=== PATIENT | male | born 1950 | race Caucasian/White ===

== ENCOUNTER 2016-09-22 13:16 | Emergency (ER) | payer OTHER ==
[2016-09-22 13:31] VITALS: BP 185/115; PULSE 70; TEMP 98.2; BMI 20.3
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
== END 2016-09-22 15:34 | disposition left against medical advice (07) ==
LOC: JER 13:16
DX: R41.82 Altered mental status, unspecified (principal); R40.0 Somnolence
CPT/HCPCS: 99281-25

== ENCOUNTER 2016-12-20 10:43 | Inpatient (IN) | payer OTHER ==
[2016-12-20 12:20] VITALS: BMI 19.4
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
[2016-12-20] MEDS ORDERED: MAGNESIUM CITRATE 300 ML BOTTLE PO PRN (14:19)
[2016-12-20] MEDS ORDERED: guaiFENesin/D-METHORPHAN HB 10 ML UNIT-DOSE CUPS PO PRN (14:19)
[2016-12-20] MEDS ORDERED: diphenhydrAMINE HCL 50 MG CAPSULE PO PRN (14:19)
[2016-12-20] MEDS ORDERED: LOPERAMIDE HCL 2 MG CAPSULE PO PRN (14:19)
[2016-12-20] MEDS ORDERED: P-EPHED 60MG/TRIPROLIDI 2.5MG TABLET PO PRN (14:19)
[2016-12-20] MEDS ORDERED: hydrOXYzine PAMOATE 25 MG CAPSULE (FP) PO PRN (14:19)
[2016-12-20] MEDS ORDERED: MAGNESIUM HYDROX 2400MG/30ML ORAL SUSPENSION 30 ML CUP PO PRN (14:19)
[2016-12-20] MEDS ORDERED: MAG HYDROX/AL HYDROX/SIMETH 30 ML UNIT-DOSE CUP PO PRN (14:19)
[2016-12-20] MEDS ORDERED: MENTHOL/PHENOL 1 EACH UD MM PRN (14:19)
[2016-12-20] MEDS ORDERED: ACETAMINOPHEN 325 MG TABLET (FP) PO PRN (14:19)
[2016-12-20] MEDS ORDERED: LISINOPRIL 10 MG TABLET (FP) PO ONE (14:28)
[2016-12-20] MEDS ORDERED: METHADONE HCL 10 MG TABLET (FOR DETOX USE ONLY) PO ONE ×2 (14:29→23:00)
[2016-12-20 16:59] LABS: URINE APPEARANCE SLCLOUDY; URINE BILIRUBIN NEGATIVE (NEGATIVE); URINE BLOOD NEGATIVE (NEGATIVE); URINE COLOR AMBER; URINE GLUCOSE (UA) NEGATIVE (NEGATIVE); URINE KETONE NEGATIVE (NEGATIVE); URINE LEUK ESTERASE TRACE (NEGATIVE); URINE NITRITE POSITIVE (NEGATIVE); URINE UROBILINOGEN 4.0 E.U/dl mg/dL (0.2-1.0)
[2016-12-20 17:01] LABS: URINE PROTEIN 1+ (NEGATIVE)
[2016-12-20 17:02] LABS: URINE BACTERIA RARE /hpf (NONE SEEN); URINE MUCUS RARE; URINE RBC 4 /hpf (0-3); URINE WBC 7 /hpf (3-5)
[2016-12-20] MEDS: THIAMINE HCL 100 MG TABLET (FP) PO SCH (22:21)
[2016-12-20] MEDS: diazePAM 5 MG TABLET PO PRN (22:21)
[2016-12-21] MEDS: diazePAM 5 MG TABLET PO PRN (04:46)
[2016-12-21] MEDS: IBUPROFEN 400 MG TABLET (FP) PO PRN ×2 (04:46→22:57)
[2016-12-21 09:54] LABS: MCH 29.6 pg (25.7-33.7); MCHC 32.6 g/dl (32.0-35.9); MEAN CELL VOLUME 90.9 fl (80-96); MEAN PLT VOLUME 9.2 fl (7.5-11.1); PLATELET COUNT 196 K/MM3 (134-434); RDW 15.6 % (11.9-15.9); WHITE BLOOD COUNT 4.5 K/mm3 (4.0-10.0)
[2016-12-21] MEDS ORDERED: METHADONE HCL 10 MG TABLET (FOR DETOX USE ONLY) PO ONE (10:00)
[2016-12-21 10:22] LABS: ALBUMIN 2.5 g/dl (3.4-5.0); ALK PHOS 165 U/L (45-117); ANION GAP 5 (8-16); BILIRUBIN,TOTAL 1.2 mg/dL (0.2-1.0); CALCIUM 8.2 mg/dL (8.5-10.1); CO2 31 mmol/L (21-32); GLUCOSE,RANDOM 112 mg/dL (74-106); SGOT/AST 127 U/L (15-37); SGPT/ALT 60 U/L (12-78); TOT PROT 7.3 g/dl (6.4-8.2)
[2016-12-21] MEDS: PRENATAL VITAMINS W/ FOLIC ACID TABLET (FP) PO SCH (10:27)
[2016-12-21] MEDS: LISINOPRIL 10 MG TABLET (FP) PO SCH (10:27)
[2016-12-21] MEDS: LIDOCAINE 5% TOPICAL PATCH TP SCH (10:27)
--- NOTE | 2016-12-21 12:13 | PN ---
[facility] CIWA - CIWA Score Nausea/Vomitin-No Nausea/No Vomiting Muscle Tremors: 5 Anxiety: 4-Mod. Anxious/Guarded Agitation: 1-Slight > Activity Paroxysmal Sweats: 3 Orientation: 0-Oriented Tacttile Disturbances: 2-Mild Itch/Numbness/Burn Auditory Disturbances: 2-Mild Harshness/Frighten Visual Disturbances: 0-None Headache: 0-None Present CIWA-Ar Total Score: 17 S Progress Note (SOAP) Subjective: Interrupted sleep, Sweating, Tremors. Objective: PT. A & O X 3, OBSERVED AMBULATING ON UNIT. NO ACUTE DISTRESS. PT. DENIES CHEST PAIN. 12/21/16 12:11 Vital Signs Temperature 98.7 F 12/21/16 09:04 Pulse Rate 52 L 12/21/16 09:04 Respiratory Rate 20 12/21/16 09:04 Blood Pressure 142/79 12/21/16 09:04 O2 Sat by Pulse Oximetry (%) Laboratory Tests 12/20/16 12/21/16 12/21/16 15:00 06:00 06:00 WBC 4.5 RBC 3.35 L Hgb 9.9 L D Hct 30.5 L MCV 90.9 MCH 29.6 MCHC 32.6 RDW 15.6 D Plt Count 196 D MPV 9.2 Sodium 141 Potassium 3.9 Chloride 105 Carbon Dioxide 31 Anion Gap 5 L BUN 20 H Creatinine 1.0 Creat Clearance w eGFR > 60 Random Glucose 112 H Calcium 8.2 L Total Bilirubin 1.2 H D AST 127 H D ALT 60 D Alkaline Phosphatase 165 H Total Protein 7.3 Albumin 2.5 L Urine Color Dasha Urine Appearance Slcloudy Urine pH 6.0 Ur Specific [place] 1.020 Urine Protein 1+ H Urine Glucose (UA) Negative Urine Ketones Negative Urine Blood Negative Urine Nitrite Positive Urine Bilirubin Negative Urine Urobilinogen 4.0 e.u/dl Urine RBC 4 Urine WBC 7 Urine Bacteria Rare Urine Mucus Rare RPR Titer 12/21/16 06:00 WBC RBC Hgb Hct MCV MCH MCHC RDW Plt Count MPV Sodium Potassium Chloride Carbon Dioxide Anion Gap BUN Creatinine Creat Clearance w eGFR Random Glucose Calcium Total Bilirubin AST ALT Alkaline Phosphatase Total Protein Albumin Urine Color Urine Appearance Urine pH Ur Specific [place] Urine Protein Urine Glucose (UA) Urine Ketones Urine Blood Urine Nitrite Urine Bilirubin Urine Urobilinogen Urine RBC Urine WBC Urine Bacteria Urine Mucus RPR Titer Nonreactive LABS NOTED. Assessment: 12/21/16 12:11 WITHDRAWAL SYMPTOMS. Plan: CONTINUE DETOX. REPEAT UA FOR ADMISSION ABNORMALITIES. FEOSOL, 325 MG TIDCM. AMLODIPINE, 5 MG PO DAILY (FIRST DOSE NOW) FOR ELEVATED BP. HEPATIC FUNCTION PANEL, REPEAT CBC ON 12/23/2016 FOR ABNORMAL ADMISSION VALUES. INCREASE DAILY PO FLUID INTAKE.
[2016-12-21] MEDS: amLODIPine BESYLATE 5 MG TABLET (FP) PO SCH (13:16)
[2016-12-21] MEDS: FERROUS SO4 325 MG TABLET (FP) PO SCH (17:14)
--- NOTE | 2016-12-21 22:15 | EKG ---
Test Reason : Blood Pressure : / mmHG Vent. Rate : 065 BPM Atrial Rate : 065 BPM P-R Int : 150 ms QRS Dur : 096 ms QT Int : 402 ms P-R-T Axes : 046 000 056 degrees QTc Int : 418 ms NORMAL SINUS RHYTHM NONSPECIFIC T WAVE ABNORMALITY ABNORMAL ECG WHEN COMPARED WITH ECG OF 20-DEC-2016 15:20, NONSPECIFIC T WAVE ABNORMALITY NOW EVIDENT IN ANTERIOR LEADS REPEAT EKG IF CLINICALLY INDICATED Confirmed by MARKY COATES MD ([id number]) on 12/21/2016 10:15:22 PM Referred By: Confirmed By:MARKY COATES MD
--- NOTE | 2016-12-21 22:39 | EKG ---
Test Reason : Blood Pressure : / mmHG Vent. Rate : 059 BPM Atrial Rate : 059 BPM P-R Int : 134 ms QRS Dur : 096 ms QT Int : 402 ms P-R-T Axes : 028 017 067 degrees QTc Int : 397 ms SINUS BRADYCARDIA MINIMAL VOLTAGE CRITERIA FOR LVH, MAY BE NORMAL VARIANT RSR' IN V1 NO PREVIOUS ECGS AVAILABLE CLINICAL CORRELATION IS RECOMMENDED Confirmed by MARKY COATES MD ([id number]) on 12/21/2016 10:38:53 PM Referred By: Confirmed By:MARKY COATES MD
[2016-12-21] MEDS: THIAMINE HCL 100 MG TABLET (FP) PO SCH (22:56)
[2016-12-21] MEDS: LIDOCAINE PATCH REMOVAL MC SCH (23:50)
[2016-12-22] MEDS: FERROUS SO4 325 MG TABLET (FP) PO SCH ×3 (07:37→16:57)
[2016-12-22] MEDS: IBUPROFEN 400 MG TABLET (FP) PO PRN (07:41)
[2016-12-22] MEDS: diazePAM 5 MG TABLET PO PRN (08:48)
[2016-12-22] MEDS ORDERED: METHADONE HCL 5 MG TABLET (FOR DETOX USE ONLY) PO ONE (10:00)
[2016-12-22] MEDS: PRENATAL VITAMINS W/ FOLIC ACID TABLET (FP) PO SCH (10:15)
[2016-12-22] MEDS: LISINOPRIL 10 MG TABLET (FP) PO SCH (10:15)
[2016-12-22] MEDS: amLODIPine BESYLATE 5 MG TABLET (FP) PO SCH (10:15)
[2016-12-22] MEDS: LIDOCAINE 5% TOPICAL PATCH TP SCH (10:17)
--- NOTE | 2016-12-22 15:36 | PN ---
BHS COWS - Scale Resting Pulse: 0= PA 80 or Below Sweatin= Chills/Flushing Restless Observation: 1= Difficult to Sit Still Pupil Size: 0= Normal to Room Light Bone or Joint Aches: 2= Severe Diffuse Aches Runny Nose/ Eye Tearin= Nasal Congestion GI Upset > 30mins: 0= None Tremor Observation of Outstretched Hands: 2= Slight Tremor Visible Yawning Observation: 2= >3x During Session Anxiety or Irritability: 2=Irritable/Anxious Goose Flesh Skin: 3=Piloerection COWS Score: 14 BHS Progress Note (SOAP) Subjective: Interrupted sleep, Anxious, Fatigue, Body Aches, Tremors. Objective: PT. A & O X 3, OBSERVED MOVING ABOUT UNIT UNIT IN IN A WHEELCHAIR. NO ACUTE DISTRESS. PT. DENIES CHEST PAIN. 12/22/16 15:33 Vital Signs Temperature 96.8 F L 12/22/16 09:23 Pulse Rate 78 12/22/16 09:23 Respiratory Rate 16 12/22/16 09:23 Blood Pressure 132/79 12/22/16 09:23 O2 Sat by Pulse Oximetry (%) Laboratory Tests 12/20/16 12/21/16 12/21/16 15:00 06:00 06:00 WBC 4.5 RBC 3.35 L Hgb 9.9 L D Hct 30.5 L MCV 90.9 MCH 29.6 MCHC 32.6 RDW 15.6 D Plt Count 196 D MPV 9.2 Sodium 141 Potassium 3.9 Chloride 105 Carbon Dioxide 31 Anion Gap 5 L BUN 20 H Creatinine 1.0 Creat Clearance w eGFR > 60 Random Glucose 112 H Calcium 8.2 L Total Bilirubin 1.2 H D AST 127 H D ALT 60 D Alkaline Phosphatase 165 H Total Protein 7.3 Albumin 2.5 L Urine Color Dasha Urine Appearance Slcloudy Urine pH 6.0 Ur Specific [place] 1.020 Urine Protein 1+ H Urine Glucose (UA) Negative Urine Ketones Negative Urine Blood Negative Urine Nitrite Positive Urine Bilirubin Negative Urine Urobilinogen 4.0 e.u/dl Urine RBC 4 Urine WBC 7 Urine Bacteria Rare Urine Mucus Rare RPR Titer 12/21/16 06:00 WBC RBC Hgb Hct MCVLABS MCH MCHC RDW Plt Count MPV Sodium Potassium Chloride Carbon Dioxide Anion Gap BUN Creatinine Creat Clearance w eGFR Random Glucose Calcium Total Bilirubin AST ALT Alkaline Phosphatase Total Protein Albumin Urine Color Urine Appearance Urine pH Ur Specific [place] Urine Protein Urine Glucose (UA) Urine Ketones Urine Blood Urine Nitrite Urine Bilirubin Urine Urobilinogen Urine RBC Urine WBC Urine Bacteria Urine Mucus RPR Titer Nonreactive LABS NOTED. RESULTS OF REPEAT UA PENDING. 12/22/16 15:36 Assessment: 12/22/16 15:35 WITHDRAWAL SYMPTOMS. Plan: CONTINUE DETOX.
[2016-12-22 17:18] LABS: URINE APPEARANCE CLOUDY; URINE BLOOD 1+ (NEGATIVE); URINE COLOR AMBER; URINE GLUCOSE (UA) NEGATIVE (NEGATIVE); URINE KETONE NEGATIVE (NEGATIVE); URINE NITRITE NEGATIVE (NEGATIVE); URINE UROBILINOGEN 4.0 E.U/dl mg/dL (0.2-1.0)
[2016-12-22 17:21] LABS: URINE LEUK ESTERASE 1+ (NEGATIVE); URINE PROTEIN 1+ (NEGATIVE)
[2016-12-22 17:47] LABS: URINE MUCUS MANY; URINE RBC 4 /hpf (0-3); URINE WBC 29 /hpf (3-5)
[2016-12-22] MEDS: THIAMINE HCL 100 MG TABLET (FP) PO SCH (22:50)
[2016-12-22] MEDS: LIDOCAINE PATCH REMOVAL MC SCH (23:07)
[2016-12-23] MEDS: FERROUS SO4 325 MG TABLET (FP) PO SCH ×3 (07:24→17:25)
[2016-12-23] MEDS ORDERED: METHADONE HCL 5 MG TABLET (FOR DETOX USE ONLY) PO ONE (10:00)
[2016-12-23 10:23] LABS: BASOPHIL 1.1 % (0-2.0); EOSINOPHIL 1.4 % (0-4.5); MCHC 32.8 g/dl (32.0-35.9); MEAN CELL VOLUME 91.4 fl (80-96); MEAN PLT VOLUME 8.9 fl (7.5-11.1); NEUTROPHILS 76.3 % (42.8-82.8); PLATELET COUNT 166 K/MM3 (134-434); RDW 15.1 % (11.9-15.9); WHITE BLOOD COUNT 4.4 K/mm3 (4.0-10.0)
[2016-12-23] MEDS: amLODIPine BESYLATE 5 MG TABLET (FP) PO SCH (10:25)
[2016-12-23] MEDS: LISINOPRIL 10 MG TABLET (FP) PO SCH (10:25)
[2016-12-23] MEDS: PRENATAL VITAMINS W/ FOLIC ACID TABLET (FP) PO SCH (10:25)
[2016-12-23] MEDS: diazePAM 5 MG TABLET PO PRN (10:26)
[2016-12-23] MEDS: LIDOCAINE 5% TOPICAL PATCH TP SCH (10:27)
[2016-12-23 10:31] LABS: ALBUMIN 2.3 g/dl (3.4-5.0); BILIRUBIN,DIRECT 0.5 mg/dL (0.0-0.2); BILIRUBIN,TOTAL 0.7 mg/dL (0.2-1.0); TOT PROT 7.2 g/dl (6.4-8.2)
--- NOTE | 2016-12-23 15:40 | PN ---
BHS Progress Note (SOAP) Subjective: Sweating,interrupted sleep,restless Objective: 12/23/16 15:39 Vital Signs - 8 hr 12/23/16 12/23/16 09:42 13:05 Temperature 97.1 F L 97.4 F L Pulse Rate 82 79 Respiratory 18 16 Rate Blood Pressure 133/76 148/92 Laboratory Tests 12/20/16 12/21/16 12/21/16 15:00 06:00 06:00 WBC 4.5 RBC 3.35 L Hgb 9.9 L D Hct 30.5 L MCV 90.9 MCH 29.6 MCHC 32.6 RDW 15.6 D Plt Count 196 D MPV 9.2 Neutrophils % Lymphocytes % Monocytes % Eosinophils % Basophils % Sodium 141 Potassium 3.9 Chloride 105 Carbon Dioxide 31 Anion Gap 5 L BUN 20 H Creatinine 1.0 Creat Clearance w eGFR > 60 Random Glucose 112 H Calcium 8.2 L Total Bilirubin 1.2 H D Direct Bilirubin AST 127 H D ALT 60 D Alkaline Phosphatase 165 H Total Protein 7.3 Albumin 2.5 L Urine Color Dasha Urine Appearance Slcloudy Urine pH 6.0 Ur Specific [place] 1.020 Urine Protein 1+ H Urine Glucose (UA) Negative Urine Ketones Negative Urine Blood Negative Urine Nitrite Positive Urine Bilirubin Negative Urine Urobilinogen 4.0 e.u/dl Urine RBC 4 Urine WBC 7 Urine Bacteria Rare Urine Mucus Rare RPR Titer 12/21/16 12/22/16 12/23/16 06:00 13:30 07:30 WBC 4.4 RBC 3.32 L Hgb 10.0 L Hct 30.4 L MCV 91.4 MCH 30.0 MCHC 32.8 RDW 15.1 Plt Count 166 MPV 8.9 Neutrophils % 76.3 Lymphocytes % 14.4 Monocytes % 6.8 Eosinophils % 1.4 Basophils % 1.1 Sodium Potassium Chloride Carbon Dioxide Anion Gap BUN Creatinine Creat Clearance w eGFR Random Glucose Calcium Total Bilirubin Direct Bilirubin AST ALT Alkaline Phosphatase Total Protein Albumin Urine Color Dasha Urine Appearance Cloudy Urine pH 6.0 Ur Specific [place] 1.020 Urine Protein 1+ H Urine Glucose (UA) Negative Urine Ketones Negative Urine Blood 1+ H Urine Nitrite Negative Urine Bilirubin 2.0 Urine Urobilinogen 4.0 e.u/dl Urine RBC 4 Urine WBC 29 Urine Bacteria Urine Mucus Many RPR Titer Nonreactive 12/23/16 07:30 WBC RBC Hgb Hct MCV MCH MCHC RDW Plt Count MPV Neutrophils % Lymphocytes % Monocytes % Eosinophils % Basophils % Sodium Potassium Chloride Carbon Dioxide Anion Gap BUN Creatinine Creat Clearance w eGFR Random Glucose Calcium Total Bilirubin 0.7 D Direct Bilirubin 0.5 H AST 157 H D ALT 56 Alkaline Phosphatase 202 H D Total Protein 7.2 Albumin 2.3 L Urine Color Urine Appearance Urine pH Ur Specific [place] Urine Protein Urine Glucose (UA) Urine Ketones Urine Blood Urine Nitrite Urine Bilirubin Urine Urobilinogen Urine RBC Urine WBC Urine Bacteria Urine Mucus RPR Titer u/a noted u/c&s ordered Assessment: 12/23/16 15:40 Withdrawal sx. Plan: Continue detox
[2016-12-23] MEDS: LEVOFLOXACIN 500 MG TABLET (FP) PO SCH (17:24)
[2016-12-23] MEDS: LIDOCAINE PATCH REMOVAL MC SCH (21:33)
[2016-12-23] MEDS: THIAMINE HCL 100 MG TABLET (FP) PO SCH (21:36)
[2016-12-24] MEDS: LEVOFLOXACIN 500 MG TABLET (FP) PO SCH (07:09)
[2016-12-24] MEDS: FERROUS SO4 325 MG TABLET (FP) PO SCH ×3 (07:09→17:23)
[2016-12-24] MEDS ORDERED: METHADONE HCL 10 MG TABLET (FOR DETOX USE ONLY) PO ONE (10:00)
[2016-12-24] MEDS: LIDOCAINE 5% TOPICAL PATCH TP SCH (10:16)
[2016-12-24] MEDS: amLODIPine BESYLATE 5 MG TABLET (FP) PO SCH (10:16)
[2016-12-24] MEDS: PRENATAL VITAMINS W/ FOLIC ACID TABLET (FP) PO SCH (10:16)
[2016-12-24] MEDS: LISINOPRIL 10 MG TABLET (FP) PO SCH (10:16)
--- NOTE | 2016-12-24 11:26 | PN ---
S Progress Note (SOAP) Subjective: ALERT O X 3. SEEN ON ROUNDS SITTING UP IN BED. NAD. Objective: 12/24/16 11:24 Vital Signs Temperature 97.6 F 12/24/16 10:25 Pulse Rate 72 12/24/16 10:25 Respiratory Rate 20 12/24/16 10:25 Blood Pressure 136/72 12/24/16 10:25 O2 Sat by Pulse Oximetry (%) Laboratory Last Values WBC 4.4 K/mm3 (4.0-10.0) 12/23/16 07:30 RBC 3.32 M/mm3 (4.00-5.60) L 12/23/16 07:30 Hgb 10.0 GM/dL (11.7-16.9) L 12/23/16 07:30 Hct 30.4 % (35.4-49) L 12/23/16 07:30 MCV 91.4 fl (80-96) 12/23/16 07:30 MCH 30.0 pg (25.7-33.7) 12/23/16 07:30 MCHC 32.8 g/dl (32.0-35.9) 12/23/16 07:30 RDW 15.1 % (11.9-15.9) 12/23/16 07:30 Plt Count 166 K/MM3 (134-434) 12/23/16 07:30 MPV 8.9 fl (7.5-11.1) 12/23/16 07:30 Neutrophils % 76.3 % (42.8-82.8) 12/23/16 07:30 Lymphocytes % 14.4 % (8-40) 12/23/16 07:30 Monocytes % 6.8 % (3.8-10.2) 12/23/16 07:30 Eosinophils % 1.4 % (0-4.5) 12/23/16 07:30 Basophils % 1.1 % (0-2.0) 12/23/16 07:30 Sodium 141 mmol/L (136-145) 12/21/16 06:00 Potassium 3.9 mmol/L (3.5-5.1) 12/21/16 06:00 Chloride 105 mmol/L (98-107) 12/21/16 06:00 Carbon Dioxide 31 mmol/L (21-32) 12/21/16 06:00 Anion Gap 5 (8-16) L 12/21/16 06:00 BUN 20 mg/dL (7-18) H 12/21/16 06:00 Creatinine 1.0 mg/dL (0.7-1.3) 12/21/16 06:00 Creat Clearance w eGFR > 60 (>60) 12/21/16 06:00 Random Glucose 112 mg/dL (74-106) H 12/21/16 06:00 Calcium 8.2 mg/dL (8.5-10.1) L 12/21/16 06:00 Total Bilirubin 0.7 mg/dL (0.2-1.0) D 12/23/16 07:30 Direct Bilirubin 0.5 mg/dL (0.0-0.2) H 12/23/16 07:30 AST 157 U/L (15-37) H D 12/23/16 07:30 ALT 56 U/L (12-78) 12/23/16 07:30 Alkaline Phosphatase 202 U/L (45-117) H D 12/23/16 07:30 Total Protein 7.2 g/dl (6.4-8.2) 12/23/16 07:30 Albumin 2.3 g/dl (3.4-5.0) L 12/23/16 07:30 Urine Color Dasha 12/22/16 13:30 Urine Appearance Cloudy 12/22/16 13:30 Urine pH 6.0 (5.0-8.0) 12/22/16 13:30 Ur Specific [place] 1.020 (1.005-1.025) 12/22/16 13:30 Urine Protein 1+ (NEGATIVE) H 12/22/16 13:30 Urine Glucose (UA) Negative (NEGATIVE) 12/22/16 13:30 Urine Ketones Negative (NEGATIVE) 12/22/16 13:30 Urine Blood 1+ (NEGATIVE) H 12/22/16 13:30 Urine Nitrite Negative (NEGATIVE) 12/22/16 13:30 Urine Bilirubin 2.0 (NEGATIVE) 12/22/16 13:30 Urine Urobilinogen 4.0 e.u/dl mg/dL (0.2-1.0) 12/22/16 13:30 Urine RBC 4 /hpf (0-3) 12/22/16 13:30 Urine WBC 29 /hpf (3-5) 12/22/16 13:30 Urine Bacteria Rare /hpf (NONE SEEN) 12/20/16 15:00 Urine Mucus Many 12/22/16 13:30 RPR Titer Nonreactive (NONREACTIVE) 12/21/16 06:00 UC RESULT PENDING Assessment: 12/24/16 11:25 WITHDRAWAL SX Plan: CONTINUE DETOX
[2016-12-24] MEDS: LIDOCAINE PATCH REMOVAL MC SCH (22:19)
[2016-12-24] MEDS: THIAMINE HCL 100 MG TABLET (FP) PO SCH (22:19)
[2016-12-25] MEDS: LEVOFLOXACIN 500 MG TABLET (FP) PO SCH (05:54)
[2016-12-25] MEDS ORDERED: METHADONE HCL 5 MG TABLET (FOR DETOX USE ONLY) PO ONE (06:00)
[2016-12-25 06:39] VITALS: BP 144/83; PULSE 84; TEMP 97.4
[2016-12-25] MEDS: FERROUS SO4 325 MG TABLET (FP) PO SCH (07:01)
--- NOTE | 2016-12-25 14:24 | DS ---
[facility] Detox Discharge Summary Admission Date: 12/20/16 Discharge Date: 12/25/16 - History Present History: Opioid Dependence, MMTP Additional Comments: PATIENT REPORTING INTEREST IN [facility] ( [place] PATIENT ADVISED TO CONSIDER LOCAL 12-STEP / NA OUTPATIENT SUPPORT GROUP MEETINGS SHOULD HE DECIDE NOT TO GO TO [facility]. PATIENT WAS DISCHARGED FROM DETOX UNIT IN STABLE MEDICAL CONDITION. Pertinent Past History: Hep C, Depression, Nicotine Dependence, MMTP, Use of Cane as Ambulatory Aid, History of Left-Sided Pneumothorax. - Physical Exam Results Vital Signs: Vital Signs Temperature 97.4 F L 12/25/16 06:39 Pulse Rate 84 12/25/16 06:39 Respiratory Rate 16 12/25/16 06:39 Blood Pressure 144/83 12/25/16 06:39 O2 Sat by Pulse Oximetry (%) Pertinent Admission Physical Exam Findings: WITHDRAWAL SYMPTOMS. Laboratory Tests 12/20/16 12/21/16 12/21/16 15:00 06:00 06:00 WBC 4.5 RBC 3.35 L Hgb 9.9 L D Hct 30.5 L MCV 90.9 MCH 29.6 MCHC 32.6 RDW 15.6 D Plt Count 196 D MPV 9.2 Neutrophils % Lymphocytes % Monocytes % Eosinophils % Basophils % Sodium 141 Potassium 3.9 Chloride 105 Carbon Dioxide 31 Anion Gap 5 L BUN 20 H Creatinine 1.0 Creat Clearance w eGFR > 60 Random Glucose 112 H Calcium 8.2 L Total Bilirubin 1.2 H D Direct Bilirubin AST 127 H D ALT 60 D Alkaline Phosphatase 165 H Total Protein 7.3 Albumin 2.5 L Urine Color Dasha Urine Appearance Slcloudy Urine pH 6.0 Ur Specific [place] 1.020 Urine Protein 1+ H Urine Glucose (UA) Negative Urine Ketones Negative Urine Blood Negative Urine Nitrite Positive Urine Bilirubin Negative Urine Urobilinogen 4.0 e.u/dl Urine RBC 4 Urine WBC 7 Urine Bacteria Rare Urine Mucus Rare RPR Titer 12/21/16 12/22/16 12/23/16 06:00 13:30 07:30 WBC 4.4 RBC 3.32 L Hgb 10.0 L Hct 30.4 L MCV 91.4 MCH 30.0 MCHC 32.8 RDW 15.1 Plt Count 166 MPV 8.9 Neutrophils % 76.3 Lymphocytes % 14.4 Monocytes % 6.8 Eosinophils % 1.4 Basophils % 1.1 Sodium Potassium Chloride Carbon Dioxide Anion Gap BUN Creatinine Creat Clearance w eGFR Random Glucose Calcium Total Bilirubin Direct Bilirubin AST ALT Alkaline Phosphatase Total Protein Albumin Urine Color Dasha Urine Appearance Cloudy Urine pH 6.0 Ur Specific [place] 1.020 Urine Protein 1+ H Urine Glucose (UA) Negative Urine Ketones Negative Urine Blood 1+ H Urine Nitrite Negative Urine Bilirubin 2.0 Urine Urobilinogen 4.0 e.u/dl Urine RBC 4 Urine WBC 29 Urine Bacteria Urine Mucus Many RPR Titer Nonreactive 12/23/16 07:30 WBC RBC Hgb Hct MCV MCH MCHC RDW Plt Count MPV Neutrophils % Lymphocytes % Monocytes % Eosinophils % Basophils % Sodium Potassium Chloride Carbon Dioxide Anion Gap BUN Creatinine Creat Clearance w eGFR Random Glucose Calcium Total Bilirubin 0.7 D Direct Bilirubin 0.5 H AST 157 H D ALT 56 Alkaline Phosphatase 202 H D Total Protein 7.2 Albumin 2.3 L Urine Color Urine Appearance Urine pH Ur Specific [place] Urine Protein Urine Glucose (UA) Urine Ketones Urine Blood Urine Nitrite Urine Bilirubin Urine Urobilinogen Urine RBC Urine WBC Urine Bacteria Urine Mucus RPR Titer LABS NOTED. - Treatment Hospital Course: Detox Protocol Followed, Detoxed Safely, Responded well, Discharged Condition Good, Rehab Referral Accepted Patient has Accepted a Rehab Referral to: [facility] ([place], [place] - Medication Discharge Medications: Ambulatory Orders NK [No Known Home Medication] 10/23/14 - Diagnosis (1) Essential hypertension Status: Acute (2) Methadone maintenance therapy patient Status: Chronic (3) Nicotine dependence Status: Chronic Qualifiers: Nicotine product type: cigarettes Substance use status: in withdrawal Qualified Code(s): F17.213 - Nicotine dependence, cigarettes, with withdrawal (4) Opioid dependence Status: Acute (5) Pneumothorax on left Status: Acute (6) Frequent falls Status: Chronic (7) Use of cane as ambulatory aid Status: Chronic (8) Weight loss Status: Chronic (9) Hepatitis C Status: Chronic Qualifiers: Viral hepatitis chronicity: chronic Hepatic coma status: without hepatic coma Qualified Code(s): B18.2 - Chronic viral hepatitis C - AMA Did Patient Leave Against Medical Advice: No
== END 2016-12-25 08:34 | disposition home or self-care (01) | DRG 773 ==
LOC: YASAS 10:43 → UNDOADMIN 14:19 → Y3N 14:19 → UNDODISIN 12-25 08:49
PROVIDERS: ADMIT Internal Medicine; ATTEND Internal Medicine
PROC: HZ2ZZZZ Detoxification Services for Substance Abuse Treatment (ICD-10-PCS; principal; 2016-12-20)
DX: F11.23 Opioid dependence with withdrawal (principal); F17.210 Nicotine dependence, cigarettes, uncomplicated; I10 Essential (primary) hypertension; B18.2 Chronic viral hepatitis C; R29.6 Repeated falls; R26.2 Difficulty in walking, not elsewhere classified; Z99.89 Dependence on other enabling machines and devices; Z87.898 Personal history of other specified conditions; Z91.14 Patient's other noncompliance with medication regimen; Z87.09 Personal history of other diseases of the respiratory system
CPT/HCPCS: 36415; 71010-TC; 80053; 80076; 81003; 81015; 85025; 85027; 86593; 87086; 93005; 93010

== ENCOUNTER 2017-01-25 11:30 | Inpatient (IN) | payer OTHER ==
[2017-01-25 13:25] VITALS: BMI 18.0
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
[2017-01-25] MEDS ORDERED: MENTHOL/PHENOL 1 EACH UD MM PRN (14:44)
[2017-01-25] MEDS ORDERED: guaiFENesin/D-METHORPHAN HB 10 ML UNIT-DOSE CUPS PO PRN (14:44)
[2017-01-25] MEDS ORDERED: hydrOXYzine PAMOATE 50 MG CAPSULE (FP) PO PRN (14:44)
[2017-01-25] MEDS ORDERED: ACETAMINOPHEN 325 MG TABLET (FP) PO PRN (14:44)
[2017-01-25] MEDS ORDERED: diphenhydrAMINE HCL 50 MG CAPSULE PO PRN (14:44)
[2017-01-25] MEDS ORDERED: MAG HYDROX/AL HYDROX/SIMETH 30 ML UNIT-DOSE CUP PO PRN (14:44)
[2017-01-25] MEDS ORDERED: P-EPHED 60MG/TRIPROLIDI 2.5MG TABLET PO PRN (14:44)
[2017-01-25] MEDS ORDERED: MAGNESIUM HYDROX 2400MG/30ML ORAL SUSPENSION 30 ML CUP PO PRN (14:44)
[2017-01-25] MEDS ORDERED: LOPERAMIDE HCL 2 MG CAPSULE PO PRN (14:44)
[2017-01-25] MEDS ORDERED: chlordiazePOXIDE HCL 25 MG CAPSULE PO PRN (14:44)
[2017-01-25] MEDS ORDERED: MAGNESIUM CITRATE 300 ML BOTTLE PO PRN (14:44)
[2017-01-25] MEDS ORDERED: NICOTINE POLACRILEX 2 MG GUM BUC PRN (14:44)
[2017-01-25] MEDS ORDERED: chlordiazePOXIDE HCL 25 MG CAPSULE PO ONE (14:51)
[2017-01-25] MEDS: NICOTINE 21 MG/24 HOURS TOPICAL PATCH TD SCH (15:56)
[2017-01-25] MEDS ORDERED: METHADONE HCL 10 MG TABLET (FOR DETOX USE ONLY) PO ONE ×2 (17:00→23:00)
[2017-01-25] MEDS ORDERED: chlordiazePOXIDE HCL 25 MG CAPSULE PO SCH (17:00)
[2017-01-25 17:57] LABS: URINE APPEARANCE SLCLOUDY; URINE BILIRUBIN NEGATIVE (NEGATIVE); URINE BLOOD NEGATIVE (NEGATIVE); URINE COLOR AMBER; URINE GLUCOSE (UA) NEGATIVE (NEGATIVE); URINE KETONE NEGATIVE (NEGATIVE); URINE NITRITE NEGATIVE (NEGATIVE); URINE PROTEIN NEGATIVE (NEGATIVE); URINE UROBILINOGEN 4.0 E.U/dl mg/dL (0.2-1.0)
[2017-01-25] MEDS: amLODIPine BESYLATE 5 MG TABLET (FP) PO SCH (18:46)
[2017-01-25 20:02] LABS: ALBUMIN 2.4 g/dl (3.4-5.0); ALK PHOS 126 U/L (45-117); ANION GAP 6 (8-16); BILIRUBIN,TOTAL 0.8 mg/dL (0.2-1.0); CALCIUM 7.5 mg/dL (8.5-10.1); CO2 30 mmol/L (21-32); CREATININE 1.1 mg/dL (0.7-1.3); GLUCOSE,RANDOM 103 mg/dL (74-106); SGOT/AST 123 U/L (15-37); SGPT/ALT 97 U/L (12-78); TOT PROT 7.1 g/dl (6.4-8.2)
[2017-01-25 20:28] LABS: URINE LEUK ESTERASE Negative (NEGATIVE)
[2017-01-25] MEDS: THIAMINE HCL 100 MG TABLET (FP) PO SCH (22:25)
[2017-01-25] MEDS: diazePAM 5 MG TABLET PO PRN (22:25)
[2017-01-26] MEDS: diazePAM 5 MG TABLET PO PRN ×2 (06:24→19:11)
--- NOTE | 2017-01-26 07:33 | CONSULT ---
[facility] Psychiatric Consult - Data Date of interview: 01/26/17 Admission source: [facility] Identifying data: This ios 66 years old chtonic Alcohol addict, ambulating with Cane, with no psychiatric hospiotalization history, withy multiple medical issues, intoxicated with: Alcoho;l, Cocaine, Opioids and Nicotine Substance Abuse History: Smoking history: Current every day smoker. Have you smoked in the past 12 months: Yes. Aproximately how many cigarettes per day: 10. Cigars Per Day: 0. Hx Chewing Tobacco Use: No. Initiated information on smoking cessation: Yes. 'Breaking Loose' booklet given: 01/25/17 (GIVEN TO PATIENT.). - Substance & Tx. History. Hx Alcohol Use: Yes. Hx Substance Use: Yes. Substance Use Type: Alcohol, Heroin. Hx Substance Use Treatment: Yes ( Several previous Detox admissinos at [facility]; Most recent: 12/2016.). - Substances Abused. Heroin. Route: Inhalation. Frequency: Daily. Amount used: 8 bags. Age of first use: 13. Date of Last Use: 01/24/17. Alcohol. Route: Oral. Frequency: 3-6 times per week. Amount used: 3-4 beers. Age of first use: 14. Date of Last Use: 01/24/17. Family Disease History Medical History: MMTP History, HepC+, rIGHT BhIP Ninjuty history, Weught loss history Psychiatric History: Patient reports history of anxiety and depression Physical/Sexual Abuse/Trauma History: Denies Additional Comment: Observation. Detox Unit Care Protocol Mental Status Exam - Mental Status Exam Alert and Oriented to: Person Cognitive Function: Fair Patient Appearance: Unkempt Mood: Anxious Affect: Labile Patient Behavior: Impulsive, Talkative, Agitated Speech Pattern: Slurred Voice Loudness: Mildly Soft/Quiet Thought Process: Circumstantial Thought Disorder: Being Controlled Hallucinations: Denies Suicidal Ideation: Denies Homicidal Ideation: Denies Insight/Judgement: Fair Sleep: Difficulty falling asleep Appetite: Weight loss Muscle strength/Tone: Mild Hypotonicity Gait/Station: Deferred Additional Comments: Observation. Detox Unit Care Protocol Psychiatric Findings - Problem List ([place] 1, 2,3) (1) Opioid dependence with withdrawal Current Visit: Yes Status: Acute (2) Alcohol dependence, uncomplicated Current Visit: Yes Status: Chronic (3) Nicotine dependence Current Visit: Yes Status: Chronic Qualifiers: Nicotine product type: cigarettes Substance use status: uncomplicated Qualified Code(s): F17.210 - Nicotine dependence, cigarettes, uncomplicated; F17.210 - Nicotine dependence, cigarettes, uncomplicated (4) Alcohol dependence Current Visit: No Status: Acute Qualifiers: Substance use status: in withdrawal (5) Drug-induced mood disorder Current Visit: No Status: Acute (6) Anxiety Current Visit: No Status: Chronic (7) Depression Current Visit: No Status: Chronic (8) Methadone maintenance therapy patient Current Visit: No Status: Chronic (9) Weight loss Current Visit: No Status: Chronic - Initial Treatment Plan Initial Treatment Plan: Observation. Detox Unit Care Protocol
[2017-01-26 09:02] LABS: HIV 1 & 2 AB NEGATIVE; HIV 1 AGp24 NEGATIVE
[2017-01-26 09:56] LABS: MCH 30.2 pg (25.7-33.7); MCHC 33.7 g/dl (32.0-35.9); MEAN CELL VOLUME 89.7 fl (80-96); MEAN PLT VOLUME 9.5 fl (7.5-11.1); PLATELET COUNT 146 K/MM3 (134-434); RDW 15.5 % (11.9-15.9); WHITE BLOOD COUNT 3.8 K/mm3 (4.0-10.0)
[2017-01-26] MEDS ORDERED: METHADONE HCL 10 MG TABLET (FOR DETOX USE ONLY) PO ONE (10:00)
[2017-01-26] MEDS: IBUPROFEN 400 MG TABLET (FP) PO PRN (10:43)
[2017-01-26] MEDS: amLODIPine BESYLATE 5 MG TABLET (FP) PO SCH (10:43)
[2017-01-26] MEDS: PRENATAL VITAMINS W/ FOLIC ACID TABLET (FP) PO SCH (10:43)
[2017-01-26] MEDS: NICOTINE 21 MG/24 HOURS TOPICAL PATCH TD SCH (10:47)
[2017-01-26] MEDS ORDERED: FLU VACCINE QUAD 60 MCG/0.5 ML (MDV 17-18) IM ONE (12:00)
--- NOTE | 2017-01-26 12:11 | PN ---
[facility] COWS - Scale Resting Pulse: 0= ID 80 or Below Sweatin=Flushed/Facial Moisture Restless Observation: 1= Difficult to Sit Still Pupil Size: 0= Normal to Room Light Bone or Joint Aches: 2= Severe Diffuse Aches Runny Nose/ Eye Tearin= Nasal Congestion GI Upset > 30mins: 2= Nausea/Diarrhea Tremor Observation of Outstretched Hands: 2= Slight Tremor Visible Yawning Observation: 1= 1-2x During Session Anxiety or Irritability: 2=Irritable/Anxious Goose Flesh Skin: 0=Smooth Skin COWS Score: 13 BHS Progress Note (SOAP) Subjective: agitation anxiety sweats i need a cane interrupted sleep Objective: 01/26/17 12:10 Vital Signs Temperature 98.6 F 01/26/17 10:00 Pulse Rate 85 01/26/17 10:00 Respiratory Rate 18 01/26/17 10:00 Blood Pressure 133/75 01/26/17 10:00 O2 Sat by Pulse Oximetry (%) Laboratory Tests 01/25/17 01/25/17 01/25/17 14:05 14:05 15:45 WBC RBC Hgb Hct MCV MCH MCHC RDW Plt Count MPV Sodium 141 Potassium 3.4 L Chloride 105 Carbon Dioxide 30 Anion Gap 6 L BUN 18 Creatinine 1.1 Creat Clearance w eGFR > 60 Random Glucose 103 Calcium 7.5 L Total Bilirubin 0.8 AST 123 H D ALT 97 H D Alkaline Phosphatase 126 H D Total Protein 7.1 Albumin 2.4 L Urine Color Dasha Urine Appearance Slcloudy Urine pH 5.0 Ur Specific [place] 1.025 Urine Protein Negative Urine Glucose (UA) Negative Urine Ketones Negative Urine Blood Negative Urine Nitrite Negative Urine Bilirubin Negative Urine Urobilinogen 4.0 e.u/dl Ur Leukocyte Esterase Negative RPR Titer HIV 1&2 Antibody Screen Negative HIV P24 Antigen Negative 01/26/17 01/26/17 05:45 05:45 WBC 3.8 L RBC 3.22 L Hgb 9.7 L Hct 28.9 L MCV 89.7 MCH 30.2 MCHC 33.7 RDW 15.5 Plt Count 146 MPV 9.5 Sodium Potassium Chloride Carbon Dioxide Anion Gap BUN Creatinine Creat Clearance w eGFR Random Glucose Calcium Total Bilirubin AST ALT Alkaline Phosphatase Total Protein Albumin Urine Color Urine Appearance Urine pH Ur Specific [place] Urine Protein Urine Glucose (UA) Urine Ketones Urine Blood Urine Nitrite Urine Bilirubin Urine Urobilinogen Ur Leukocyte Esterase RPR Titer Nonreactive HIV 1&2 Antibody Screen HIV P24 Antigen low potassium; k-dur 20meq x 4 days aaox3 ambulating no acute distress Assessment: 01/26/17 12:11 withdrawal sx Plan: continue detox increase fluids
[2017-01-26] MEDS: POTASSIUM CHLORIDE TABS 20 MEQ TABLET.ER (FP) PO SCH (12:50)
--- NOTE | 2017-01-26 13:24 | EKG ---
Test Reason : Blood Pressure : / mmHG Vent. Rate : 063 BPM Atrial Rate : 063 BPM P-R Int : 144 ms QRS Dur : 098 ms QT Int : 382 ms P-R-T Axes : 052 016 062 degrees QTc Int : 390 ms NORMAL SINUS RHYTHM NORMAL ECG WHEN COMPARED WITH ECG OF 21-DEC-2016 10:16, NO SIGNIFICANT CHANGE WAS FOUND Confirmed by STEFAN DURBIN MD ([id number]) on 01/26/2017 1:24:32 PM Referred By: Confirmed By:STEFAN DURBIN MD
[2017-01-26] MEDS ORDERED: chlordiazePOXIDE HCL 25 MG CAPSULE PO SCH (17:00)
[2017-01-26] MEDS: THIAMINE HCL 100 MG TABLET (FP) PO SCH (23:56)
[2017-01-27] MEDS ORDERED: METHADONE HCL 5 MG TABLET (FOR DETOX USE ONLY) PO ONE (10:00)
[2017-01-27] MEDS: amLODIPine BESYLATE 5 MG TABLET (FP) PO SCH (11:14)
[2017-01-27] MEDS: PRENATAL VITAMINS W/ FOLIC ACID TABLET (FP) PO SCH (11:14)
[2017-01-27] MEDS: POTASSIUM CHLORIDE TABS 20 MEQ TABLET.ER (FP) PO SCH (11:14)
[2017-01-27] MEDS: NICOTINE 21 MG/24 HOURS TOPICAL PATCH TD SCH (11:18)
--- NOTE | 2017-01-27 11:33 | PN ---
[facility] COWS - Scale Resting Pulse: 1= VT 81-100 Sweatin= Chills/Flushing Restless Observation: 3= Extraneous Movement Pupil Size: 1= Pupils >than Normal Bone or Joint Aches: 2= Severe Diffuse Aches Runny Nose/ Eye Tearin= Runny Nose/Eyes GI Upset > 30mins: 3= Vomiting/Diarrhea Tremor Observation of Outstretched Hands: 2= Slight Tremor Visible Yawning Observation: 1= 1-2x During Session Anxiety or Irritability: 2=Irritable/Anxious Goose Flesh Skin: 0=Smooth Skin COWS Score: 18 S Progress Note (SOAP) Subjective: alert,irritable,anxious,interrupted sleep,pain in the body back, Objective: 01/27/17 11:30 Vital Signs Temperature 97.9 F 01/27/17 10:03 Pulse Rate 80 01/27/17 10:03 Respiratory Rate 18 01/27/17 10:03 Blood Pressure 150/80 01/27/17 10:03 O2 Sat by Pulse Oximetry (%) ekg nsr,normal ecg Laboratory Last Values WBC 3.8 K/mm3 (4.0-10.0) L 01/26/17 05:45 RBC 3.22 M/mm3 (4.00-5.60) L 01/26/17 05:45 Hgb 9.7 GM/dL (11.7-16.9) L 01/26/17 05:45 Hct 28.9 % (35.4-49) L 01/26/17 05:45 MCV 89.7 fl (80-96) 01/26/17 05:45 MCH 30.2 pg (25.7-33.7) 01/26/17 05:45 MCHC 33.7 g/dl (32.0-35.9) 01/26/17 05:45 RDW 15.5 % (11.9-15.9) 01/26/17 05:45 Plt Count 146 K/MM3 (134-434) 01/26/17 05:45 MPV 9.5 fl (7.5-11.1) 01/26/17 05:45 Sodium 141 mmol/L (136-145) 01/25/17 14:05 Potassium 3.4 mmol/L (3.5-5.1) L 01/25/17 14:05 Chloride 105 mmol/L (98-107) 01/25/17 14:05 Carbon Dioxide 30 mmol/L (21-32) 01/25/17 14:05 Anion Gap 6 (8-16) L 01/25/17 14:05 BUN 18 mg/dL (7-18) 01/25/17 14:05 Creatinine 1.1 mg/dL (0.7-1.3) 01/25/17 14:05 Creat Clearance w eGFR > 60 (>60) 01/25/17 14:05 Random Glucose 103 mg/dL (74-106) 01/25/17 14:05 Calcium 7.5 mg/dL (8.5-10.1) L 01/25/17 14:05 Total Bilirubin 0.8 mg/dL (0.2-1.0) 01/25/17 14:05 AST 123 U/L (15-37) H D 01/25/17 14:05 ALT 97 U/L (12-78) H D 01/25/17 14:05 Alkaline Phosphatase 126 U/L (45-117) H D 01/25/17 14:05 Total Protein 7.1 g/dl (6.4-8.2) 01/25/17 14:05 Albumin 2.4 g/dl (3.4-5.0) L 01/25/17 14:05 Urine Color Dasha 01/25/17 15:45 Urine Appearance Slcloudy 01/25/17 15:45 Urine pH 5.0 (5.0-8.0) 01/25/17 15:45 Ur Specific [place] 1.025 (1.005-1.025) 01/25/17 15:45 Urine Protein Negative (NEGATIVE) 01/25/17 15:45 Urine Glucose (UA) Negative (NEGATIVE) 01/25/17 15:45 Urine Ketones Negative (NEGATIVE) 01/25/17 15:45 Urine Blood Negative (NEGATIVE) 01/25/17 15:45 Urine Nitrite Negative (NEGATIVE) 01/25/17 15:45 Urine Bilirubin Negative (NEGATIVE) 01/25/17 15:45 Urine Urobilinogen 4.0 e.u/dl mg/dL (0.2-1.0) 01/25/17 15:45 Ur Leukocyte Esterase Negative (NEGATIVE) 01/25/17 15:45 RPR Titer Nonreactive (NONREACTIVE) 01/26/17 05:45 HIV 1&2 Antibody Screen Negative 01/25/17 14:05 HIV P24 Antigen Negative 01/25/17 14:05 01/27/17 11:32 Assessment: 01/27/17 11:33 withdrawal symptom Plan: continue detox
--- NOTE | 2017-01-27 11:39 | PN ---
CYN Progress Note Note: addendum patient stated try to get out of bed,fell on the floor with pain in the right hip and pelvis no head injury,history of injury to right hip in the past no injury noted no deformity of hip,leg ambulation with cane without difficulty impression fall treatment initiate fall protocol 2 all precaution x ray of right hip and pelvis colse monitoring
[2017-01-27] MEDS: FERROUS SO4 325 MG TABLET (FP) PO SCH ×2 (14:12→22:53)
[2017-01-27] MEDS ORDERED: chlordiazePOXIDE 5 MG CAPSULE PO SCH (17:00)
[2017-01-27] MEDS: THIAMINE HCL 100 MG TABLET (FP) PO SCH (22:53)
[2017-01-27] MEDS: diazePAM 5 MG TABLET PO PRN (22:55)
[2017-01-28] MEDS: diazePAM 5 MG TABLET PO PRN (07:01)
[2017-01-28] MEDS ORDERED: METHADONE HCL 5 MG TABLET (FOR DETOX USE ONLY) PO ONE (10:00)
[2017-01-28 10:08] LABS: SGPT/ALT 80 U/L (12-78)
[2017-01-28 10:38] LABS: INR 1.13 (0.82-1.09); PROTHROMBIN TIME (PATIENT) 12.8 SEC (9.98-11.88)
[2017-01-28] MEDS: POTASSIUM CHLORIDE TABS 20 MEQ TABLET.ER (FP) PO SCH (10:42)
[2017-01-28] MEDS: FERROUS SO4 325 MG TABLET (FP) PO SCH ×2 (10:42→22:55)
[2017-01-28] MEDS: NICOTINE 21 MG/24 HOURS TOPICAL PATCH TD SCH (10:42)
[2017-01-28] MEDS: amLODIPine BESYLATE 5 MG TABLET (FP) PO SCH (10:42)
[2017-01-28] MEDS: PRENATAL VITAMINS W/ FOLIC ACID TABLET (FP) PO SCH (10:42)
[2017-01-28] MEDS: IBUPROFEN 400 MG TABLET (FP) PO PRN (10:45)
--- NOTE | 2017-01-28 11:31 | PN ---
S Progress Note (SOAP) Subjective: ALERT,IRRITABLE,ANXIOUS,INTERRUPTED SLEEP Objective: 01/28/17 11:28 Vital Signs Temperature 98.1 F 01/28/17 10:00 Pulse Rate 88 01/28/17 10:00 Respiratory Rate 16 01/28/17 10:00 Blood Pressure 142/82 01/28/17 10:00 O2 Sat by Pulse Oximetry (%) Laboratory Last Values WBC 3.8 K/mm3 (4.0-10.0) L 01/26/17 05:45 RBC 3.22 M/mm3 (4.00-5.60) L 01/26/17 05:45 Hgb 9.7 GM/dL (11.7-16.9) L 01/26/17 05:45 Hct 28.9 % (35.4-49) L 01/26/17 05:45 MCV 89.7 fl (80-96) 01/26/17 05:45 MCH 30.2 pg (25.7-33.7) 01/26/17 05:45 MCHC 33.7 g/dl (32.0-35.9) 01/26/17 05:45 RDW 15.5 % (11.9-15.9) 01/26/17 05:45 Plt Count 146 K/MM3 (134-434) 01/26/17 05:45 MPV 9.5 fl (7.5-11.1) 01/26/17 05:45 PT with INR 12.80 SEC (9.98-11.88) H 01/28/17 07:00 INR 1.13 (0.82-1.09) 01/28/17 07:00 Sodium 141 mmol/L (136-145) 01/25/17 14:05 Potassium 3.4 mmol/L (3.5-5.1) L 01/25/17 14:05 Chloride 105 mmol/L (98-107) 01/25/17 14:05 Carbon Dioxide 30 mmol/L (21-32) 01/25/17 14:05 Anion Gap 6 (8-16) L 01/25/17 14:05 BUN 18 mg/dL (7-18) 01/25/17 14:05 Creatinine 1.1 mg/dL (0.7-1.3) 01/25/17 14:05 Creat Clearance w eGFR > 60 (>60) 01/25/17 14:05 Random Glucose 103 mg/dL (74-106) 01/25/17 14:05 Calcium 7.5 mg/dL (8.5-10.1) L 01/25/17 14:05 Total Bilirubin 0.8 mg/dL (0.2-1.0) 01/25/17 14:05 AST 123 U/L (15-37) H D 01/25/17 14:05 ALT 80 U/L (12-78) H 01/28/17 07:00 Alkaline Phosphatase 126 U/L (45-117) H D 01/25/17 14:05 Total Protein 7.1 g/dl (6.4-8.2) 01/25/17 14:05 Albumin 2.4 g/dl (3.4-5.0) L 01/25/17 14:05 Urine Color Dasha 01/25/17 15:45 Urine Appearance Slcloudy 01/25/17 15:45 Urine pH 5.0 (5.0-8.0) 01/25/17 15:45 Ur Specific [place] 1.025 (1.005-1.025) 01/25/17 15:45 Urine Protein Negative (NEGATIVE) 01/25/17 15:45 Urine Glucose (UA) Negative (NEGATIVE) 01/25/17 15:45 Urine Ketones Negative (NEGATIVE) 01/25/17 15:45 Urine Blood Negative (NEGATIVE) 01/25/17 15:45 Urine Nitrite Negative (NEGATIVE) 01/25/17 15:45 Urine Bilirubin Negative (NEGATIVE) 01/25/17 15:45 Urine Urobilinogen 4.0 e.u/dl mg/dL (0.2-1.0) 01/25/17 15:45 Ur Leukocyte Esterase Negative (NEGATIVE) 01/25/17 15:45 RPR Titer Nonreactive (NONREACTIVE) 01/26/17 05:45 HIV 1&2 Antibody Screen Negative 01/25/17 14:05 HIV P24 Antigen Negative 01/25/17 14:05 01/28/17 11:30 Assessment: 01/28/17 11:29 XRAY OF RIGHT HIP AND PELVIS NO ACUTE PATHOLOGY Plan: WITHDRAWAL SYMPTOM,CONTINUE DETOX
[2017-01-28 15:31] LABS: SGOT/AST 140 U/L (15-37)
[2017-01-28] MEDS ORDERED: chlordiazePOXIDE HCL 10 MG CAPSULE PO SCH (17:00)
[2017-01-28] MEDS: THIAMINE HCL 100 MG TABLET (FP) PO SCH (22:55)
[2017-01-29] MEDS ORDERED: METHADONE HCL 10 MG TABLET (FOR DETOX USE ONLY) PO ONE (10:00)
[2017-01-29] MEDS: amLODIPine BESYLATE 5 MG TABLET (FP) PO SCH (11:00)
[2017-01-29] MEDS: PRENATAL VITAMINS W/ FOLIC ACID TABLET (FP) PO SCH ×2 (11:00→11:09)
[2017-01-29] MEDS: FERROUS SO4 325 MG TABLET (FP) PO SCH ×2 (11:00→22:29)
[2017-01-29] MEDS: POTASSIUM CHLORIDE TABS 20 MEQ TABLET.ER (FP) PO SCH (11:00)
[2017-01-29] MEDS: NICOTINE 21 MG/24 HOURS TOPICAL PATCH TD SCH (11:08)
--- NOTE | 2017-01-29 11:52 | PN ---
[facility] Progress Note (SOAP) Subjective: ALERT,INTERRUPTED SLEEP,PAIN IN THE BODY Objective: 01/29/17 11:50 Vital Signs Temperature 99.7 F H 01/29/17 10:19 Pulse Rate 78 01/29/17 10:19 Respiratory Rate 16 01/29/17 10:19 Blood Pressure 135/83 01/29/17 10:19 O2 Sat by Pulse Oximetry (%) Assessment: 01/29/17 11:51 WITHDRAWAL SYMPTOM Plan: CONTINUE DETOX,DISCHARGE IN AM
[2017-01-29] MEDS: THIAMINE HCL 100 MG TABLET (FP) PO SCH (22:29)
[2017-01-30] MEDS: IBUPROFEN 400 MG TABLET (FP) PO PRN (05:26)
[2017-01-30] MEDS ORDERED: METHADONE HCL 5 MG TABLET (FOR DETOX USE ONLY) PO ONE (06:00)
--- NOTE | 2017-01-30 08:17 | DS ---
[facility] Detox Discharge Summary Admission Date: 01/25/17 Discharge Date: 01/30/17 - History Present History: Alcohol Dependence, Opioid Dependence Additional Comments: FOLLOW UP WITH AFTER CARE PROGRAM ARRANGEMENT Pertinent Past History: ESSENTIAL HYPERTENSION HEPATITIS C NICOTINE DEPENDENCE INJURY OF RIGHT HIP ANEMIA CANE AMBULATORY AID - Physical Exam Results Vital Signs: Vital Signs Temperature 96.1 F L 01/30/17 06:29 Pulse Rate 74 01/30/17 06:29 Respiratory Rate 18 01/30/17 06:29 Blood Pressure 144/90 01/30/17 06:29 O2 Sat by Pulse Oximetry (%) Pertinent Admission Physical Exam Findings: WITHDRAWAL SYMPTOM - Treatment Hospital Course: Detox Protocol Followed, Detoxed Safely, Responded well, Discharged Condition Good Patient has Accepted a Rehab Referral to: [facility] - Medication Discharge Medications: Ambulatory Orders NK [No Known Home Medication] 10/23/14 - Diagnosis (1) Alcohol dependence, uncomplicated Current Visit: Yes Status: Chronic (2) Hepatitis C Current Visit: Yes Status: Chronic Qualifiers: Viral hepatitis chronicity: chronic Hepatic coma status: without hepatic coma Qualified Code(s): B18.2 - Chronic viral hepatitis C; B18.2 - Chronic viral hepatitis C; B18.2 - Chronic viral hepatitis C; B18.2 - Chronic viral hepatitis C (3) Injury of right hip Current Visit: Yes Status: Chronic Qualifiers: Encounter type: sequela Qualified Code(s): S79.911S - Unspecified injury of right hip, sequela; S79.911S - Unspecified injury of right hip, sequela (4) Opioid dependence with withdrawal Current Visit: Yes Status: Chronic (5) Use of cane as ambulatory aid Current Visit: Yes Status: Chronic (6) Essential hypertension Current Visit: Yes Status: Suspected (7) Anemia Current Visit: Yes Status: Acute
[2017-01-30] MEDS: amLODIPine BESYLATE 5 MG TABLET (FP) PO SCH (09:40)
[2017-01-30] MEDS: FERROUS SO4 325 MG TABLET (FP) PO SCH (09:40)
[2017-01-30] MEDS: POTASSIUM CHLORIDE TABS 20 MEQ TABLET.ER (FP) PO SCH (09:40)
[2017-01-30] MEDS: PRENATAL VITAMINS W/ FOLIC ACID TABLET (FP) PO SCH (09:41)
[2017-01-30] MEDS: NICOTINE 21 MG/24 HOURS TOPICAL PATCH TD SCH (09:41)
[2017-01-30 11:03] VITALS: BP 135/81; PULSE 90; TEMP 96.8
== END 2017-01-30 10:25 | disposition home or self-care (01) | DRG 773 ==
LOC: YASAS 11:30 → Y6N 13:37
PROVIDERS: ADMIT Internal Medicine; ATTEND Internal Medicine
PROC: HZ2ZZZZ Detoxification Services for Substance Abuse Treatment (ICD-10-PCS; principal; 2017-01-25)
DX: F11.23 Opioid dependence with withdrawal (principal); F10.230 Alcohol dependence with withdrawal, uncomplicated; F19.24 Other psychoactive substance dependence with psychoactive substance-induced mood disorder; F41.9 Anxiety disorder, unspecified; I10 Essential (primary) hypertension; B18.2 Chronic viral hepatitis C; D64.9 Anemia, unspecified; S79.911S Unspecified injury of right hip, sequela; X58.XXXS Exposure to other specified factors, sequela; R26.2 Difficulty in walking, not elsewhere classified; Z87.898 Personal history of other specified conditions; W06.XXXA Fall from bed, initial encounter; Y93.89 Activity, other specified; Y92.230 Patient room in hospital as the place of occurrence of the external cause
CPT/HCPCS: 36415; 73523-TC; 80053; 81003; 84450; 84460; 85027; 85610; 86593; 87389; 90688; 93005; 93010; G0008

== ENCOUNTER 2017-03-08 12:47 | Inpatient (IN) | payer OTHER ==
[2017-03-08 13:11] VITALS: BMI 21.9
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
[2017-03-08] MEDS ORDERED: MAGNESIUM HYDROX 2400MG/30ML ORAL SUSPENSION 30 ML CUP PO PRN (15:02)
[2017-03-08] MEDS ORDERED: LOPERAMIDE HCL 2 MG CAPSULE PO PRN (15:02)
[2017-03-08] MEDS ORDERED: NICOTINE POLACRILEX 4 MG GUM BC PRN (15:02)
[2017-03-08] MEDS ORDERED: MAGNESIUM CITRATE 300 ML BOTTLE PO PRN (15:02)
[2017-03-08] MEDS ORDERED: MAG HYDROX/AL HYDROX/SIMETH 30 ML UNIT-DOSE CUP PO PRN (15:02)
[2017-03-08] MEDS ORDERED: P-EPHED 60MG/TRIPROLIDI 2.5MG TABLET PO PRN (15:02)
[2017-03-08] MEDS ORDERED: guaiFENesin/D-METHORPHAN HB 10 ML UNIT-DOSE CUPS PO PRN (15:02)
[2017-03-08] MEDS ORDERED: hydrOXYzine PAMOATE 50 MG CAPSULE (FP) PO PRN (15:02)
[2017-03-08] MEDS ORDERED: MENTHOL/PHENOL 1 EACH UD MM PRN (15:02)
[2017-03-08] MEDS ORDERED: METHADONE HCL 10 MG TABLET (FOR DETOX USE ONLY) PO ONE ×2 (16:30→23:00)
[2017-03-08] MEDS: diazePAM 5 MG TABLET PO PRN ×2 (17:26→22:13)
[2017-03-08] MEDS: amLODIPine BESYLATE 5 MG TABLET (FP) PO SCH (17:27)
[2017-03-08] MEDS: THIAMINE HCL 100 MG TABLET (FP) PO SCH (22:11)
[2017-03-09] MEDS ORDERED: METHADONE HCL 10 MG TABLET (FOR DETOX USE ONLY) PO ONE (10:00)
--- NOTE | 2017-03-09 10:33 | EKG ---
Test Reason : Blood Pressure : / mmHG Vent. Rate : 082 BPM Atrial Rate : 082 BPM P-R Int : 140 ms QRS Dur : 088 ms QT Int : 360 ms P-R-T Axes : 025 039 053 degrees QTc Int : 420 ms NORMAL SINUS RHYTHM LOW VOLTAGE QRS BORDERLINE ECG WHEN COMPARED WITH ECG OF 25-JAN-2017 14:50, NO SIGNIFICANT CHANGE WAS FOUND Confirmed by STEFAN DURBIN MD ([id number]) on 03/09/2017 10:32:37 AM Referred By: Confirmed By:STEFAN DURBIN MD
[2017-03-09] MEDS: PRENATAL VITAMINS W/ FOLIC ACID TABLET (FP) PO SCH (10:34)
[2017-03-09] MEDS: amLODIPine BESYLATE 5 MG TABLET (FP) PO SCH (10:34)
[2017-03-09] MEDS: NICOTINE 21 MG/24 HOURS TOPICAL PATCH TD SCH (10:34)
[2017-03-09 11:06] LABS: URINE APPEARANCE CLOUDY; URINE BILIRUBIN NEGATIVE (NEGATIVE); URINE BLOOD NEGATIVE (NEGATIVE); URINE COLOR AMBER; URINE GLUCOSE (UA) NEGATIVE (NEGATIVE); URINE KETONE NEGATIVE (NEGATIVE); URINE NITRITE NEGATIVE (NEGATIVE); URINE PROTEIN NEGATIVE (NEGATIVE); URINE UROBILINOGEN NEGATIVE mg/dL (0.2-1.0)
[2017-03-09 11:11] LABS: MCH 30.2 pg (25.7-33.7); MCHC 32.9 g/dl (32.0-35.9); MEAN CELL VOLUME 91.8 fl (80-96); MEAN PLT VOLUME 9.9 fl (7.5-11.1); PLATELET COUNT 169 K/MM3 (134-434); RDW 15.5 % (11.9-15.9); WHITE BLOOD COUNT 8.3 K/mm3 (4.0-10.0)
[2017-03-09 11:32] LABS: ALBUMIN 2.3 g/dl (3.4-5.0); ALK PHOS 168 U/L (45-117); ANION GAP 9 (8-16); BILIRUBIN,TOTAL 1.1 mg/dL (0.2-1.0); CALCIUM 7.2 mg/dL (8.5-10.1); CO2 25 mmol/L (21-32); CREATININE 0.7 mg/dL (0.7-1.3); GLUCOSE,RANDOM 79 mg/dL (74-106); SGOT/AST 143 U/L (15-37); SGPT/ALT 319 U/L (12-78); TOT PROT 6.6 g/dl (6.4-8.2)
--- NOTE | 2017-03-09 14:19 | PN ---
BHS COWS - Scale Resting Pulse: 2= [place] 101-120 Sweatin= Chills/Flushing Restless Observation: 1= Difficult to Sit Still Pupil Size: 0= Normal to Room Light Bone or Joint Aches: 1= Mild Discomfort Runny Nose/ Eye Tearin= Nasal Congestion GI Upset > 30mins: 0= None Tremor Observation of Outstretched Hands: 2= Slight Tremor Visible Yawning Observation: 1= 1-2x During Session Anxiety or Irritability: 2=Irritable/Anxious Goose Flesh Skin: 3=Piloerection COWS Score: 14 BHS Progress Note (SOAP) Subjective: Sweating, Body Aches, Tremors. Patient reporting discomfort in Right-sided groin area for last several days. Patient reports history of inguinal hernia repair in this area at [facility] approx. 6 months ago. Objective: PT. A & O X 3, OBSERVED AMBULATING ON UNIT WITH ASSISTANCE OF A CANE. NO ACUTE DISTRESS. NO ERYTHEMA, SWELLING, WOUNDS, BLEEDING, OR UNUSUAL DISCHARGE NOTED IN LEFT INGUINAL AREA. 03/09/17 14:13 Vital Signs Temperature 98.1 F 03/09/17 13:11 Pulse Rate 85 03/09/17 13:11 Respiratory Rate 18 03/09/17 13:11 Blood Pressure 130/75 03/09/17 13:11 O2 Sat by Pulse Oximetry (%) Laboratory Tests 03/08/17 03/09/17 03/09/17 09:40 06:00 06:00 WBC 8.3 D RBC 3.38 L Hgb 10.2 L Hct 31.0 L MCV 91.8 MCH 30.2 MCHC 32.9 RDW 15.5 Plt Count 169 MPV 9.9 Sodium 139 Potassium 3.3 L Chloride 105 Carbon Dioxide 25 Anion Gap 9 BUN 13 D Creatinine 0.7 D Creat Clearance w eGFR > 60 Random Glucose 79 D Calcium 7.2 L Total Bilirubin 1.1 H D AST 143 H ALT 319 H D Alkaline Phosphatase 168 H D Total Protein 6.6 Albumin 2.3 L Urine Color Dasha Urine Appearance Cloudy Urine pH 5.0 Ur Specific [place] 1.018 Urine Protein Negative Urine Glucose (UA) Negative Urine Ketones Negative Urine Blood Negative Urine Nitrite Negative Urine Bilirubin Negative Urine Urobilinogen Negative LABS NOTED. PATIENT HAS HISTORY ANEMIA ON PREVIOUS DETOX ADMISSIONS. RPR RESULT PENDING. 03/09/17 14:15 Assessment: 03/09/17 14:14 WITHDRAWAL SYMPTOMS. ANEMIA. HYPOKALEMIA. 03/09/17 14:22 Plan: CONTINUE DETOX. HEPATIC FUNCTION PANEL ON 03/11/2017 FOR ABNORMAL ADMISSION HEPATIC LAB VALUES. FEOSOL, 325 MG PO DAILY. K-DUR, 20 MEQ PO X 1 NOW, THEN 20 MEQ PO BID AFTER. PATIENT ADVISED TO FOLLOW-UP WITH [facility] AT [facility] ([place], [place] AFTER DISCHARGE FROM DETOX FOR MEDICAL ASSESSMENT AND FOR FOLLOW-UP EVALUATION OF LEFT INGUINAL AREA.
[2017-03-09] MEDS ORDERED: POTASSIUM CHLORIDE TABS 20 MEQ TABLET.ER (FP) PO ONE (14:20)
[2017-03-09] MEDS: FERROUS SO4 325 MG TABLET (FP) PO SCH (14:38)
[2017-03-09] MEDS: CALCIUM 250MG/VIT-D 125 UNITS 1 COMBO TABLET PO SCH (14:45)
[2017-03-09 17:02] LABS: URINE LEUK ESTERASE Negative (NEGATIVE)
[2017-03-09] MEDS: POTASSIUM CHLORIDE TABS 20 MEQ TABLET.ER (FP) PO SCH (17:06)
[2017-03-09] MEDS: diazePAM 5 MG TABLET PO PRN ×2 (17:06→22:04)
[2017-03-09] MEDS: IBUPROFEN 400 MG TABLET (FP) PO PRN (17:09)
[2017-03-09] MEDS: THIAMINE HCL 100 MG TABLET (FP) PO SCH (22:03)
[2017-03-10] MEDS: ACETAMINOPHEN 325 MG TABLET (FP) PO PRN (06:31)
[2017-03-10] MEDS ORDERED: METHADONE HCL 5 MG TABLET (FOR DETOX USE ONLY) PO ONE (10:00)
[2017-03-10] MEDS: PRENATAL VITAMINS W/ FOLIC ACID TABLET (FP) PO SCH (10:21)
[2017-03-10] MEDS: NICOTINE 21 MG/24 HOURS TOPICAL PATCH TD SCH (10:21)
[2017-03-10] MEDS: CALCIUM 250MG/VIT-D 125 UNITS 1 COMBO TABLET PO SCH (10:21)
[2017-03-10] MEDS: FERROUS SO4 325 MG TABLET (FP) PO SCH (10:21)
[2017-03-10] MEDS: amLODIPine BESYLATE 5 MG TABLET (FP) PO SCH (10:21)
[2017-03-10] MEDS: POTASSIUM CHLORIDE TABS 20 MEQ TABLET.ER (FP) PO SCH ×2 (10:21→17:41)
[2017-03-10] MEDS: IBUPROFEN 400 MG TABLET (FP) PO PRN (10:24)
[2017-03-10] MEDS: diazePAM 5 MG TABLET PO PRN (17:42)
--- NOTE | 2017-03-10 19:10 | PN ---
S COWS - Scale Resting Pulse: 0= PA 80 or Below Sweatin= Chills/Flushing Restless Observation: 1= Difficult to Sit Still Pupil Size: 0= Normal to Room Light Bone or Joint Aches: 2= Severe Diffuse Aches Runny Nose/ Eye Tearin= None GI Upset > 30mins: 0= None Tremor Observation of Outstretched Hands: 2= Slight Tremor Visible Yawning Observation: 1= 1-2x During Session Anxiety or Irritability: 2=Irritable/Anxious Goose Flesh Skin: 3=Piloerection COWS Score: 12 BHS Progress Note (SOAP) Subjective: Body Aches, Fatigue, Sweating, Tremors. Objective: PT. A & O X 3, OBSERVED AMBULATING ON UNIT WITH ASSISTANCE OF A CANE. NO ACUTE DISTRESS. 03/10/17 19:06 Vital Signs Temperature 97.5 F L 03/10/17 17:51 Pulse Rate 77 03/10/17 17:51 Respiratory Rate 16 03/10/17 17:51 Blood Pressure 149/83 03/10/17 17:51 O2 Sat by Pulse Oximetry (%) Laboratory Tests 03/08/17 03/09/17 03/09/17 09:40 06:00 06:00 WBC 8.3 D RBC 3.38 L Hgb 10.2 L Hct 31.0 L MCV 91.8 MCH 30.2 MCHC 32.9 RDW 15.5 Plt Count 169 MPV 9.9 Sodium 139 Potassium 3.3 L Chloride 105 Carbon Dioxide 25 Anion Gap 9 BUN 13 D Creatinine 0.7 D Creat Clearance w eGFR > 60 Random Glucose 79 D Calcium 7.2 L Total Bilirubin 1.1 H D AST 143 H ALT 319 H D Alkaline Phosphatase 168 H D Total Protein 6.6 Albumin 2.3 L Urine Color Dasha Urine Appearance Cloudy Urine pH 5.0 Ur Specific [place] 1.018 Urine Protein Negative Urine Glucose (UA) Negative Urine Ketones Negative Urine Blood Negative Urine Nitrite Negative Urine Bilirubin Negative Urine Urobilinogen Negative RPR Titer 03/09/17 06:00 WBC RBC Hgb Hct MCV MCH MCHC RDW Plt Count MPV Sodium Potassium Chloride Carbon Dioxide Anion Gap BUN Creatinine Creat Clearance w eGFR Random Glucose Calcium Total Bilirubin AST ALT Alkaline Phosphatase Total Protein Albumin Urine Color Urine Appearance Urine pH Ur Specific [place] Urine Protein Urine Glucose (UA) Urine Ketones Urine Blood Urine Nitrite Urine Bilirubin Urine Urobilinogen RPR Titer Nonreactive LABS NOTED. Assessment: 03/10/17 19:08 WITHDRAWAL SYMPTOMS. ANEMIA. HYPOKALEMIA. 03/10/17 19:09 Plan: CONTINUE DETOX.
[2017-03-10] MEDS: THIAMINE HCL 100 MG TABLET (FP) PO SCH (22:09)
[2017-03-11] MEDS ORDERED: METHADONE HCL 5 MG TABLET (FOR DETOX USE ONLY) PO ONE (10:00)
[2017-03-11] MEDS: POTASSIUM CHLORIDE TABS 20 MEQ TABLET.ER (FP) PO SCH ×2 (10:26→19:08)
[2017-03-11] MEDS: FERROUS SO4 325 MG TABLET (FP) PO SCH (10:26)
[2017-03-11] MEDS: amLODIPine BESYLATE 5 MG TABLET (FP) PO SCH (10:26)
[2017-03-11] MEDS: NICOTINE 21 MG/24 HOURS TOPICAL PATCH TD SCH (10:26)
[2017-03-11] MEDS: PRENATAL VITAMINS W/ FOLIC ACID TABLET (FP) PO SCH (10:27)
[2017-03-11] MEDS: CALCIUM 250MG/VIT-D 125 UNITS 1 COMBO TABLET PO SCH (10:27)
[2017-03-11 11:08] LABS: ALBUMIN 2.1 g/dl (3.4-5.0); BILIRUBIN,DIRECT 0.5 mg/dL (0.0-0.2); BILIRUBIN,TOTAL 0.6 mg/dL (0.2-1.0); TOT PROT 6.2 g/dl (6.4-8.2)
--- NOTE | 2017-03-11 15:47 | PN ---
BHS Progress Note (SOAP) Subjective: Anxious, Sweating, Body Aches. Objective: PT. A & O X 3, OBSERVED AMBULATING ON UNIT WITH ASSISTANCE OF A CANE. NO ACUTE DISTRESS. 03/11/17 15:43 Vital Signs Temperature 97.7 F 03/11/17 13:38 Pulse Rate 100 H 03/11/17 13:38 Respiratory Rate 20 03/11/17 13:38 Blood Pressure 150/90 03/11/17 13:38 O2 Sat by Pulse Oximetry (%) Laboratory Tests 03/08/17 03/09/17 03/09/17 09:40 06:00 06:00 WBC 8.3 D RBC 3.38 L Hgb 10.2 L Hct 31.0 L MCV 91.8 MCH 30.2 MCHC 32.9 RDW 15.5 Plt Count 169 MPV 9.9 Sodium 139 Potassium 3.3 L Chloride 105 Carbon Dioxide 25 Anion Gap 9 BUN 13 D Creatinine 0.7 D Creat Clearance w eGFR > 60 Random Glucose 79 D Calcium 7.2 L Total Bilirubin 1.1 H D Direct Bilirubin AST 143 H ALT 319 H D Alkaline Phosphatase 168 H D Total Protein 6.6 Albumin 2.3 L Urine Color Dasha Urine Appearance Cloudy Urine pH 5.0 Ur Specific [place] 1.018 Urine Protein Negative Urine Glucose (UA) Negative Urine Ketones Negative Urine Blood Negative Urine Nitrite Negative Urine Bilirubin Negative Urine Urobilinogen Negative RPR Titer 03/09/17 03/11/17 06:00 07:00 WBC RBC Hgb Hct MCV MCH MCHC RDW Plt Count MPV Sodium Potassium Chloride Carbon Dioxide Anion Gap BUN Creatinine Creat Clearance w eGFR Random Glucose Calcium Total Bilirubin 0.6 D Direct Bilirubin 0.5 H AST 118 H ALT 192 H D Alkaline Phosphatase 229 H D Total Protein 6.2 L Albumin 2.1 L Urine Color Urine Appearance Urine pH Ur Specific [place] Urine Protein Urine Glucose (UA) Urine Ketones Urine Blood Urine Nitrite Urine Bilirubin Urine Urobilinogen RPR Titer Nonreactive LABS NOTED. Assessment: 03/11/17 15:46 WITHDRAWAL SYMPTOMS. HYPOKALEMIA. HTN. Plan: CONTINUE DETOX. INCREASE DAILY AMLODIPINE DOSE TO 10 MG PO DAILY. CONTINUE K-DUR.
[2017-03-11] MEDS ORDERED: amLODIPine BESYLATE 5 MG TABLET (FP) PO ONE (17:00)
[2017-03-11] MEDS: ACETAMINOPHEN 325 MG TABLET (FP) PO PRN (19:13)
[2017-03-11] MEDS: THIAMINE HCL 100 MG TABLET (FP) PO SCH (22:21)
[2017-03-12] MEDS ORDERED: METHADONE HCL 10 MG TABLET (FOR DETOX USE ONLY) PO ONE (10:00)
[2017-03-12] MEDS: CALCIUM 250MG/VIT-D 125 UNITS 1 COMBO TABLET PO SCH (10:52)
[2017-03-12] MEDS: NICOTINE 21 MG/24 HOURS TOPICAL PATCH TD SCH (10:52)
[2017-03-12] MEDS: PRENATAL VITAMINS W/ FOLIC ACID TABLET (FP) PO SCH (10:52)
[2017-03-12] MEDS: FERROUS SO4 325 MG TABLET (FP) PO SCH (10:52)
[2017-03-12] MEDS: amLODIPine BESYLATE 10 MG TABLET (FP) PO SCH (10:52)
[2017-03-12] MEDS: POTASSIUM CHLORIDE TABS 20 MEQ TABLET.ER (FP) PO SCH ×2 (10:52→17:36)
--- NOTE | 2017-03-12 15:58 | PN ---
BHS Progress Note (SOAP) Subjective: Tremors, Anxious, Interrupted Sleep, Body Aches. Objective: PT. A & O X 3, OBSERVED AMBULATING ON UNIT WITH ASSISTANCE OF A CANE. NO ACUTE DISTRESS. 03/12/17 15:54 Vital Signs Temperature 97.2 F L 03/12/17 15:05 Pulse Rate 88 03/12/17 15:05 Respiratory Rate 20 03/12/17 15:05 Blood Pressure 124/76 03/12/17 15:05 O2 Sat by Pulse Oximetry (%) Laboratory Tests 03/08/17 03/09/17 03/09/17 09:40 06:00 06:00 WBC 8.3 D RBC 3.38 L Hgb 10.2 L Hct 31.0 L MCV 91.8 MCH 30.2 MCHC 32.9 RDW 15.5 Plt Count 169 MPV 9.9 Sodium 139 Potassium 3.3 L Chloride 105 Carbon Dioxide 25 Anion Gap 9 BUN 13 D Creatinine 0.7 D Creat Clearance w eGFR > 60 Random Glucose 79 D Calcium 7.2 L Total Bilirubin 1.1 H D Direct Bilirubin AST 143 H ALT 319 H D Alkaline Phosphatase 168 H D Total Protein 6.6 Albumin 2.3 L Urine Color Dasha Urine Appearance Cloudy Urine pH 5.0 Ur Specific [place] 1.018 Urine Protein Negative Urine Glucose (UA) Negative Urine Ketones Negative Urine Blood Negative Urine Nitrite Negative Urine Bilirubin Negative Urine Urobilinogen Negative RPR Titer 03/09/17 03/11/17 06:00 07:00 WBC RBC Hgb Hct MCV MCH MCHC RDW Plt Count MPV Sodium Potassium Chloride Carbon Dioxide Anion Gap BUN Creatinine Creat Clearance w eGFR Random Glucose Calcium Total Bilirubin 0.6 D Direct Bilirubin 0.5 H AST 118 H ALT 192 H D Alkaline Phosphatase 229 H D Total Protein 6.2 L Albumin 2.1 L Urine Color Urine Appearance Urine pH Ur Specific [place] Urine Protein Urine Glucose (UA) Urine Ketones Urine Blood Urine Nitrite Urine Bilirubin Urine Urobilinogen RPR Titer Nonreactive LABS NOTED. Assessment: 03/12/17 15:55 WITHDRAWAL SYMPTOMS. Plan: CONTINUE DETOX. DUE TO PERSISTENCE OF DETOX SYMPTOMS AND DUE TO MEDICAL CO-MORBIDITIES, PATIENT PERMITTED TO REMAIN ON DETOX UNIT UNTIL 03/14/2017, AT WHICH TIME HE WILL BE TAKEN TO [facility] ([place] FOR AFTERCARE.
[2017-03-12] MEDS: THIAMINE HCL 100 MG TABLET (FP) PO SCH (23:22)
[2017-03-13] MEDS ORDERED: METHADONE HCL 5 MG TABLET (FOR DETOX USE ONLY) PO ONE (06:00)
[2017-03-13] MEDS: PRENATAL VITAMINS W/ FOLIC ACID TABLET (FP) PO SCH (10:15)
[2017-03-13] MEDS: CALCIUM 250MG/VIT-D 125 UNITS 1 COMBO TABLET PO SCH (10:15)
[2017-03-13] MEDS: POTASSIUM CHLORIDE TABS 20 MEQ TABLET.ER (FP) PO SCH ×2 (10:15→18:20)
[2017-03-13] MEDS: amLODIPine BESYLATE 10 MG TABLET (FP) PO SCH (10:15)
[2017-03-13] MEDS: FERROUS SO4 325 MG TABLET (FP) PO SCH (10:15)
[2017-03-13] MEDS: NICOTINE 21 MG/24 HOURS TOPICAL PATCH TD SCH (10:16)
[2017-03-13] MEDS ORDERED: COLLOIDAL OATMEAL 1 BAR EACH TP PRN (11:43)
--- NOTE | 2017-03-13 16:34 | PN ---
BHS Progress Note (SOAP) Subjective: Stomach cramp, back pain, n/v/d Objective: 03/13/17 16:30 Last Vital Signs Temp Pulse Resp BP Pulse Ox 97.8 F 92 H 18 120/73 03/13/17 10:50 03/13/17 10:50 03/13/17 14:26 03/13/17 10:50 Laboratory Tests 03/08/17 03/09/17 03/09/17 09:40 06:00 06:00 WBC 8.3 D RBC 3.38 L Hgb 10.2 L Hct 31.0 L MCV 91.8 MCH 30.2 MCHC 32.9 RDW 15.5 Plt Count 169 MPV 9.9 Sodium 139 Potassium 3.3 L Chloride 105 Carbon Dioxide 25 Anion Gap 9 BUN 13 D Creatinine 0.7 D Creat Clearance w eGFR > 60 Random Glucose 79 D Calcium 7.2 L Total Bilirubin 1.1 H D Direct Bilirubin AST 143 H ALT 319 H D Alkaline Phosphatase 168 H D Total Protein 6.6 Albumin 2.3 L Urine Color Dasha Urine Appearance Cloudy Urine pH 5.0 Ur Specific [place] 1.018 Urine Protein Negative Urine Glucose (UA) Negative Urine Ketones Negative Urine Blood Negative Urine Nitrite Negative Urine Bilirubin Negative Urine Urobilinogen Negative RPR Titer 03/09/17 03/11/17 06:00 07:00 WBC RBC Hgb Hct MCV MCH MCHC RDW Plt Count MPV Sodium Potassium Chloride Carbon Dioxide Anion Gap BUN Creatinine Creat Clearance w eGFR Random Glucose Calcium Total Bilirubin 0.6 D Direct Bilirubin 0.5 H AST 118 H ALT 192 H D Alkaline Phosphatase 229 H D Total Protein 6.2 L Albumin 2.1 L Urine Color Urine Appearance Urine pH Ur Specific [place] Urine Protein Urine Glucose (UA) Urine Ketones Urine Blood Urine Nitrite Urine Bilirubin Urine Urobilinogen RPR Titer Nonreactive Labs noted: K 3.3 Assessment: 03/13/17 16:32 Withdrawal symptoms Noted with hypokalemia Plan: Continue detox Encouraged to drink lots of water (patient refused water pitcher) Hyokalemia: continue K supplement
[2017-03-13] MEDS: THIAMINE HCL 100 MG TABLET (FP) PO SCH (22:07)
[2017-03-14] MEDS: CALCIUM 250MG/VIT-D 125 UNITS 1 COMBO TABLET PO SCH (10:30)
[2017-03-14] MEDS: FERROUS SO4 325 MG TABLET (FP) PO SCH (10:30)
[2017-03-14] MEDS: amLODIPine BESYLATE 10 MG TABLET (FP) PO SCH (10:30)
[2017-03-14] MEDS: POTASSIUM CHLORIDE TABS 20 MEQ TABLET.ER (FP) PO SCH ×2 (10:31→17:14)
[2017-03-14] MEDS: PRENATAL VITAMINS W/ FOLIC ACID TABLET (FP) PO SCH (10:31)
[2017-03-14] MEDS: NICOTINE 21 MG/24 HOURS TOPICAL PATCH TD SCH (10:32)
--- NOTE | 2017-03-14 12:09 | DS ---
[facility] Detox Discharge Summary Admission Date: 03/08/17 Discharge Date: 03/14/17 - History Present History: Alcohol Dependence Additional Comments: DETOX COMPLETED. PT REFERRED TO [facility] BUT REFUSED TO GO AND [facility] MEANWHILE NO BED IS AVAILABLE AT [facility]-AWAITING TO SEE IF BED BECOMES AVAILABLE. COUNSELOR IS WORKING WITH PT TO SEE HOW PT CAN BE BETTER SERVED. Pertinent Past History: HTN HEP C LIVER CA - Physical Exam Results Vital Signs: Vital Signs Temperature 97.4 F L 03/14/17 09:36 Pulse Rate 95 H 03/14/17 09:36 Respiratory Rate 20 03/14/17 09:36 Blood Pressure 138/73 03/14/17 09:36 O2 Sat by Pulse Oximetry (%) Pertinent Admission Physical Exam Findings: WITHDRAWAL SX Laboratory Last Values WBC 8.3 K/mm3 (4.0-10.0) D 03/09/17 06:00 RBC 3.38 M/mm3 (4.00-5.60) L 03/09/17 06:00 Hgb 10.2 GM/dL (11.7-16.9) L 03/09/17 06:00 Hct 31.0 % (35.4-49) L 03/09/17 06:00 MCV 91.8 fl (80-96) 03/09/17 06:00 MCH 30.2 pg (25.7-33.7) 03/09/17 06:00 MCHC 32.9 g/dl (32.0-35.9) 03/09/17 06:00 RDW 15.5 % (11.9-15.9) 03/09/17 06:00 Plt Count 169 K/MM3 (134-434) 03/09/17 06:00 MPV 9.9 fl (7.5-11.1) 03/09/17 06:00 Sodium 139 mmol/L (136-145) 03/09/17 06:00 Potassium 3.3 mmol/L (3.5-5.1) L 03/09/17 06:00 Chloride 105 mmol/L (98-107) 03/09/17 06:00 Carbon Dioxide 25 mmol/L (21-32) 03/09/17 06:00 Anion Gap 9 (8-16) 03/09/17 06:00 BUN 13 mg/dL (7-18) D 03/09/17 06:00 Creatinine 0.7 mg/dL (0.7-1.3) D 03/09/17 06:00 Creat Clearance w eGFR > 60 (>60) 03/09/17 06:00 Random Glucose 79 mg/dL (74-106) D 03/09/17 06:00 Calcium 7.2 mg/dL (8.5-10.1) L 03/09/17 06:00 Total Bilirubin 0.6 mg/dL (0.2-1.0) D 03/11/17 07:00 Direct Bilirubin 0.5 mg/dL (0.0-0.2) H 03/11/17 07:00 AST 118 U/L (15-37) H 03/11/17 07:00 ALT 192 U/L (12-78) H D 03/11/17 07:00 Alkaline Phosphatase 229 U/L (45-117) H D 03/11/17 07:00 Total Protein 6.2 g/dl (6.4-8.2) L 03/11/17 07:00 Albumin 2.1 g/dl (3.4-5.0) L 03/11/17 07:00 Urine Color Dasha 03/08/17 09:40 Urine Appearance Cloudy 03/08/17 09:40 Urine pH 5.0 (5.0-8.0) 03/08/17 09:40 Ur Specific [place] 1.018 (1.001-1.035) 03/08/17 09:40 Urine Protein Negative (NEGATIVE) 03/08/17 09:40 Urine Glucose (UA) Negative (NEGATIVE) 03/08/17 09:40 Urine Ketones Negative (NEGATIVE) 03/08/17 09:40 Urine Blood Negative (NEGATIVE) 03/08/17 09:40 Urine Nitrite Negative (NEGATIVE) 03/08/17 09:40 Urine Bilirubin Negative (NEGATIVE) 03/08/17 09:40 Urine Urobilinogen Negative mg/dL (0.2-1.0) 03/08/17 09:40 RPR Titer Nonreactive (NONREACTIVE) 03/09/17 06:00 - Treatment Hospital Course: Detox Protocol Followed, Detoxed Safely, Responded well, Discharged Condition Good, Rehab Referral Accepted Patient has Accepted a Rehab Referral to: [facility] - Medication Discharge Medications: Ambulatory Orders Amlodipine Besylate [Norvasc -] 5 mg PO DAILY #30 tablet 01/30/17 - Diagnosis (1) Anemia Current Visit: Yes Status: Acute Qualifiers: Anemia type: iron deficiency (2) Opioid dependence with withdrawal Current Visit: Yes Status: Acute (3) Essential hypertension Current Visit: Yes Status: Chronic (4) Hepatitis C Current Visit: Yes Status: Chronic Qualifiers: Viral hepatitis chronicity: chronic Hepatic coma status: without hepatic coma Qualified Code(s): B18.2 - Chronic viral hepatitis C (5) Nicotine dependence Current Visit: Yes Status: Chronic Qualifiers: Nicotine product type: cigarettes Substance use status: in withdrawal Qualified Code(s): F17.213 - Nicotine dependence, cigarettes, with withdrawal (6) Weight loss Current Visit: Yes Status: Chronic - AMA Did Patient Leave Against Medical Advice: No
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
--- NOTE | 2017-03-14 15:01 | PN ---
S Progress Note Note: PT C/O STILL HAVING WITHDRAWAL SX-STOMACH CRAMPS/SPASMS/MUSCLE ACHES, FATIGUE. PT WILL BE RE-EVALUATED TOMORROW. PT WAS SEEN BY THE PSYCH MD FOR HX DEPRESSION WHICH PT DID NOT -SEE PSYCH NOTES. INCREASE PO FLUIDS. Vital Signs 03/14/17 03/14/17 09:36 14:01 Temperature 97.4 F L 98.6 F Pulse Rate 95 H 94 H Respiratory 20 18 Rate Blood Pressure 138/73 145/84 Laboratory Last Values WBC 8.3 K/mm3 (4.0-10.0) D 03/09/17 06:00 RBC 3.38 M/mm3 (4.00-5.60) L 03/09/17 06:00 Hgb 10.2 GM/dL (11.7-16.9) L 03/09/17 06:00 Hct 31.0 % (35.4-49) L 03/09/17 06:00 MCV 91.8 fl (80-96) 03/09/17 06:00 MCH 30.2 pg (25.7-33.7) 03/09/17 06:00 MCHC 32.9 g/dl (32.0-35.9) 03/09/17 06:00 RDW 15.5 % (11.9-15.9) 03/09/17 06:00 Plt Count 169 K/MM3 (134-434) 03/09/17 06:00 MPV 9.9 fl (7.5-11.1) 03/09/17 06:00 Sodium 139 mmol/L (136-145) 03/09/17 06:00 Potassium 3.3 mmol/L (3.5-5.1) L 03/09/17 06:00 Chloride 105 mmol/L (98-107) 03/09/17 06:00 Carbon Dioxide 25 mmol/L (21-32) 03/09/17 06:00 Anion Gap 9 (8-16) 03/09/17 06:00 BUN 13 mg/dL (7-18) D 03/09/17 06:00 Creatinine 0.7 mg/dL (0.7-1.3) D 03/09/17 06:00 Creat Clearance w eGFR > 60 (>60) 03/09/17 06:00 Random Glucose 79 mg/dL (74-106) D 03/09/17 06:00 Calcium 7.2 mg/dL (8.5-10.1) L 03/09/17 06:00 Total Bilirubin 0.6 mg/dL (0.2-1.0) D 03/11/17 07:00 Direct Bilirubin 0.5 mg/dL (0.0-0.2) H 03/11/17 07:00 AST 118 U/L (15-37) H 03/11/17 07:00 ALT 192 U/L (12-78) H D 03/11/17 07:00 Alkaline Phosphatase 229 U/L (45-117) H D 03/11/17 07:00 Total Protein 6.2 g/dl (6.4-8.2) L 03/11/17 07:00 Albumin 2.1 g/dl (3.4-5.0) L 03/11/17 07:00 Urine Color Dasha 03/08/17 09:40 Urine Appearance Cloudy 03/08/17 09:40 Urine pH 5.0 (5.0-8.0) 03/08/17 09:40 Ur Specific [place] 1.018 (1.001-1.035) 03/08/17 09:40 Urine Protein Negative (NEGATIVE) 03/08/17 09:40 Urine Glucose (UA) Negative (NEGATIVE) 03/08/17 09:40 Urine Ketones Negative (NEGATIVE) 03/08/17 09:40 Urine Blood Negative (NEGATIVE) 03/08/17 09:40 Urine Nitrite Negative (NEGATIVE) 03/08/17 09:40 Urine Bilirubin Negative (NEGATIVE) 03/08/17 09:40 Urine Urobilinogen Negative mg/dL (0.2-1.0) 03/08/17 09:40 RPR Titer Nonreactive (NONREACTIVE) 03/09/17 06:00 IMPRESSION:RESIDUAL WITHDRAWAL SX PLAN:INCREASE PO FLUIDS REPEAT CBC AND CMP IN AM FLEXERIL OR MOTRIN DIRECTED. MONITOR PT SAFETY RE-EVALUATE IN THE MORNING
[2017-03-14] MEDS: THIAMINE HCL 100 MG TABLET (FP) PO SCH (23:00)
[2017-03-15 09:36] VITALS: BP 123/69; PULSE 83; TEMP 98.1
--- NOTE | 2017-03-15 11:15 | DS ---
[facility] Detox Discharge Summary Admission Date: 03/08/17 Discharge Date: 03/15/17 - History Present History: Opioid Dependence Additional Comments: PATIENT TO BE PICKED UP BY BUILDING CONSTRUCTION ESTIMATOR FROM [facility]. FOLLOW-UP AFTERCARE WILL THEN BE ARRANGED BY BUILDING CONSTRUCTION ESTIMATOR. PATIENT MIGHT POSSIBLY BE GOING TO [facility] ([place] FOR AFTERCARE. PATIENT WAS DISCHARGED FROM DETOX UNIT IN STABLE MEDICAL CONDITION. Pertinent Past History: HTN, History of Liver Cancer, Hep C, Weight Loss, Nicotine Dependence. - Physical Exam Results Vital Signs: Vital Signs Temperature 98.1 F 03/15/17 09:35 Pulse Rate 83 03/15/17 09:35 Respiratory Rate 18 03/15/17 09:35 Blood Pressure 123/69 03/15/17 09:35 O2 Sat by Pulse Oximetry (%) Pertinent Admission Physical Exam Findings: WITHDRAWAL SYMPTOMS. Laboratory Tests 03/08/17 03/09/17 03/09/17 09:40 06:00 06:00 WBC 8.3 D RBC 3.38 L Hgb 10.2 L Hct 31.0 L MCV 91.8 MCH 30.2 MCHC 32.9 RDW 15.5 Plt Count 169 MPV 9.9 Sodium 139 Potassium 3.3 L Chloride 105 Carbon Dioxide 25 Anion Gap 9 BUN 13 D Creatinine 0.7 D Creat Clearance w eGFR > 60 Random Glucose 79 D Calcium 7.2 L Total Bilirubin 1.1 H D Direct Bilirubin AST 143 H ALT 319 H D Alkaline Phosphatase 168 H D Total Protein 6.6 Albumin 2.3 L Urine Color Dasha Urine Appearance Cloudy Urine pH 5.0 Ur Specific [place] 1.018 Urine Protein Negative Urine Glucose (UA) Negative Urine Ketones Negative Urine Blood Negative Urine Nitrite Negative Urine Bilirubin Negative Urine Urobilinogen Negative RPR Titer 03/09/17 03/11/17 06:00 07:00 WBC RBC Hgb Hct MCV MCH MCHC RDW Plt Count MPV Sodium Potassium Chloride Carbon Dioxide Anion Gap BUN Creatinine Creat Clearance w eGFR Random Glucose Calcium Total Bilirubin 0.6 D Direct Bilirubin 0.5 H AST 118 H ALT 192 H D Alkaline Phosphatase 229 H D Total Protein 6.2 L Albumin 2.1 L Urine Color Urine Appearance Urine pH Ur Specific [place] Urine Protein Urine Glucose (UA) Urine Ketones Urine Blood Urine Nitrite Urine Bilirubin Urine Urobilinogen RPR Titer Nonreactive LABS NOTED. - Treatment Hospital Course: Detox Protocol Followed, Detoxed Safely, Responded well, Discharged Condition Good Patient has Accepted a Rehab Referral to: AFTERCARE FOR PATIENT TO BE ARRANGED BY BUILDING CONSTRUCTION ESTIMATOR FROM [facility] [facility]. - Medication Discharge Medications: Ambulatory Orders Amlodipine Besylate [Norvasc -] 5 mg PO DAILY #30 tablet 01/30/17 - Diagnosis (1) Opioid dependence with withdrawal Current Visit: Yes Status: Acute (2) Essential hypertension Current Visit: Yes Status: Chronic (3) Hepatitis C Current Visit: Yes Status: Chronic Qualifiers: Viral hepatitis chronicity: chronic Hepatic coma status: without hepatic coma Qualified Code(s): B18.2 - Chronic viral hepatitis C (4) Nicotine dependence Current Visit: Yes Status: Chronic Qualifiers: Nicotine product type: cigarettes Substance use status: in withdrawal Qualified Code(s): F17.213 - Nicotine dependence, cigarettes, with withdrawal (5) Weight loss Current Visit: Yes Status: Chronic - AMA Did Patient Leave Against Medical Advice: No
--- NOTE | 2017-03-15 11:17 | DS ---
[facility] Detox Discharge Summary Admission Date: 03/08/17 - Physical Exam Results Vital Signs: Vital Signs Temperature 98.1 F 03/15/17 09:35 Pulse Rate 83 03/15/17 09:35 Respiratory Rate 18 03/15/17 09:35 Blood Pressure 123/69 03/15/17 09:35 O2 Sat by Pulse Oximetry (%) - Medication Discharge Medications: Ambulatory Orders Amlodipine Besylate [Norvasc -] 5 mg PO DAILY #30 tablet 01/30/17 - Diagnosis (1) Opioid dependence with withdrawal Current Visit: Yes Status: Acute (2) Essential hypertension Current Visit: Yes Status: Chronic (3) Hepatitis C Current Visit: Yes Status: Chronic Qualifiers: Viral hepatitis chronicity: chronic Hepatic coma status: without hepatic coma Qualified Code(s): B18.2 - Chronic viral hepatitis C (4) Nicotine dependence Current Visit: Yes Status: Chronic Qualifiers: Nicotine product type: cigarettes Substance use status: in withdrawal Qualified Code(s): F17.213 - Nicotine dependence, cigarettes, with withdrawal (5) Weight loss Current Visit: Yes Status: Chronic
== END 2017-03-15 10:50 | disposition home or self-care (01) | DRG 773 ==
LOC: YASAS 12:47 → Y3N 15:56
PROVIDERS: ADMIT Internal Medicine; ATTEND Internal Medicine
PROC: HZ2ZZZZ Detoxification Services for Substance Abuse Treatment (ICD-10-PCS; principal; 2017-03-08)
DX: F11.23 Opioid dependence with withdrawal (principal); F17.213 Nicotine dependence, cigarettes, with withdrawal; I10 Essential (primary) hypertension; D50.9 Iron deficiency anemia, unspecified; B18.2 Chronic viral hepatitis C; R63.4 Abnormal weight loss; Z68.21 Body mass index [BMI] 21.0-21.9, adult; Z85.05 Personal history of malignant neoplasm of liver
CPT/HCPCS: 36415; 80053; 80076; 81003; 85027; 86593; 93005; 93010